=== PATIENT | female | born 1995 | race Caucasian/White ===

== ENCOUNTER 2017-08-31 16:20 | Emergency (ER) | payer BC ==
[2017-08-31] MEDS ORDERED: PROPOFOL INJ 200 MG/20 ML VIAL IV ONE (16:45)
--- NOTE | 2017-08-31 16:49 | ER Document Report ---
ED General - General Chief Complaint: Jaw Pain Stated Complaint: JAW PAIN Time Seen by Provider: 08/31/17 16:45 Notes: 21-year-old female presents with her mouth stuck "lock jaw" acute onset associated with bilateral mandibular pain, onset while sleeping about an hour ago. Last oral intake was 5 hours ago. 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 She wears a guard and has a specialist. No history of adverse events from sedation. TRAVEL OUTSIDE OF THE [place] IN LAST 30 DAYS: No - Related Data Allergies/Adverse Reactions: amoxicillin trihydrate [From Augmentin] Allergy (Verified 08/16/16 02:52) Potassium Clavulanate * [From Augmentin] Allergy (Verified 08/16/16 02:52) Past Medical History - Social History Smoking Status: Never Smoker Chew tobacco use (# tins/day): No Frequency of alcohol use: None Drug Abuse: None Family History: Reviewed & Not Pertinent, Other - Kidney stones Patient has suicidal ideation: No Patient has homicidal ideation: No - Past Medical History Cardiac Medical History: Reports: Other - Mandible dislocation Renal/ Medical History: Denies: Hx Peritoneal Dialysis Past Surgical History: Reports: Hx Gynecologic Surgery, Hx Orthopedic Surgery - achilles tendon - Immunizations Immunizations up to date: Yes Hx Diphtheria, Pertussis, Tetanus Vaccination: Yes Review of Systems - Review of Systems Notes: REVIEW OF SYSTEMS GEN: Denies fever, chills, weight loss ENT: D mandible dislocation EYES: Denies blurry vision, eye pain, discharge CV: Denies chest pain, palpitations, edema RESP: Denies cough, shortness of breath, wheezing GI: Denies abdominal pain, nausea, vomiting, diarrhea MSK: Denies joint pain/swelling, edema, SKIN: Denies rash, skin lesions LYMPH: Denies swollen glands/lymph nodes NEURO: Denies headache, focal weakness or numbness, dizziness PSYCH: Denies depression, suicidal or homicidal ideation PHYSICAL EXAMINATION General: No acute distress, well-nourished Head: Atraumatic, normocephalic ENT: Mouth normal, oropharynx moist, mouth is open with bilateral temporomandibular tenderness and masseter spasm. Eyes: Conjunctiva normal, pupils equal, lids normal Neck: No JVD, supple, no guarding CVS: Normal rate, regular rhythm, no murmurs Resp: No resp distress, equal and normal breath sounds bilaterally GI: Nondistended, soft, no tenderness to palpation, no rebound or guarding Ext: No deformities, no edema, normal range of motion in upper and lower ext Back: No CVA or midline TTP Skin: No rash, warm Lymphatic: No lymphadeopathy noted Neuro: Awake, alert. Face symmetric. GCS 15. Physical Exam - Vital signs Vitals: Temp Pulse Resp BP Pulse Ox 99.1 F 91 20 115/68 96 08/31/17 16:33 08/31/17 16:33 08/31/17 16:33 08/31/17 16:33 08/31/17 16:33 Course - Re-evaluation Re-evalutation: 08/31/17 16:54 21-year-old female presents with mandibular dislocation. I attempted closed reduction using the pre-maxillary pressure and rotational technique and the patient was intolerant secondary to pain. She has no contraindications to procedural sedations we will proceed with propofol sedation and closed reduction. 08/31/17 17:54 Minimal successfully reduced. Adithya wrap applied. Instructions given to patient and her mother. At about 555 the patient was awake alert with normal vital signs appropriate for discharge home. Will follow up with her dentist for referral to maxillofacial surgery. I have discussed with the patient there likely diagnosis, aftercare plan, follow -up plans and my usual and customary return precautions. They verbalized understanding of this. - Vital Signs Vital signs: Temp Pulse Resp BP Pulse Ox 99.1 F 91 10 L 115/68 99 08/31/17 16:33 08/31/17 16:33 08/31/17 16:54 08/31/17 16:33 08/31/17 16:54 Procedures - Conscious Sedation Conscious sedation Time started: 17:20 Time completed: 17:45 Consent obtained: Yes Indication: Reduction of mandible dislocation Normal healthy pt.: P1. - ASA Classification Airway Evaluation: Normal anatomy Mallampati Classification: Class 1 Used during procedure: Suction available, IV access obtained, Pulse ox on pt., Other - End-tidal CO2 placed Reversal agents: None I personally performed/intraservice time: Sedation, Procedure, 31-45 min Complications: No - Joint Reduction/Fracture Care Right Head Time completed: 17:40 Consent obtained: Yes Conscious sedation: Yes Pre-procedure NV exam: No Fracture: Closed, Other Manipulation comment: Mandible dislocation reduced intraorally with axial traction and rotational Post-procedure NV exam: No Post-reduction x-ray: Joint reduced Reduction attempts: 1 Notes: 08/31/17 17:53 Adithya wrap applied after successful reduction Discharge - Discharge Clinical Impression: Dislocated mandible Qualifiers: Encounter type: initial encounter Qualified Code(s): S03.00XA - Dislocation of jaw, unspecified side, initial encounter Condition: Good Disposition: HOME, SELF-CARE Instructions: Fractured Mandible ([facility]), Post Sedation Instructions ([facility]) Additional Instructions: Please avoid yawning, do not eat hard candy or large objects requiring it open her mouth widely, take ibuprofen for pain, and follow-up with your maxillofacial specialist in the next 5 days.
[2017-08-31] MEDS ORDERED: NORMAL SALINE 1000 ML 1,000 ML IV ONE (16:53)
[2017-08-31 17:57] VITALS: BP 102/43
== END 2017-08-31 18:00 | disposition home or self-care (01) ==
LOC: ER 16:20
DX: M26.69 Other specified disorders of temporomandibular joint (principal); Z88.0 Allergy status to penicillin
CPT/HCPCS: 99283; 96360; 99153; 99152; 21480; J7030; J2704

== ENCOUNTER 2017-11-23 12:11 | Emergency (ER) | payer BC ==
[2017-11-23] MEDS ORDERED: PROPOFOL INJ 200 MG/20 ML VIAL IV ONE ×2 (12:40→13:14)
[2017-11-23] MEDS ORDERED: MORPHINE SULFATE 10 MG/ML INJ IV ONE (12:43)
[2017-11-23] MEDS ORDERED: ONDANSETRON HCL INJ/PF 4 MG/2 ML SDV IV ONE (12:43)
[2017-11-23] MEDS ORDERED: FENTANYL CITRATE INJ/PF 100 MCG/2 ML AMPUL IV ONE (12:59)
[2017-11-23] MEDS ORDERED: DIAZEPAM INJ 10 MG/2 ML DISP.SYRIN IV ONE (13:13)
--- NOTE | 2017-11-23 14:12 | ER Document Report ---
ED Oral Problem - General Chief Complaint: Jaw Pain Stated Complaint: JAW LOCKED Time Seen by Provider: 11/23/17 12:40 Mode of Arrival: Ambulatory Information source: Patient, Relative Notes: 21 years old female presents today with dislocation of the jaws. This is the fourth or fifth time she has done it. Over the last 3 years. She was jogging and then jaw dislocated in severe pain. TRAVEL OUTSIDE OF THE [place] IN LAST 30 DAYS: No - HPI Patient complains to provider of: Jaw pain. No: Foreign body, Sore throat, Swelling of face, Swelling of jaw, Toothache, Other Onset: Just prior to arrival Onset: Sudden Quality of pain: denies: No pain, Achy, Burning, Cramping, Dull, Fullness, Pressure, Sharp, Stabbing, Throbbing, Other Context: denies: Fractured tooth, Recent antibiotic use, Recent dental extractions, Recent yeast infection, Other Associated symptoms: denies: None, Chills, Cough, Decreased appetite, Dental decay, Difficulty speaking, Drainage, Drooling, Earache, Facial pain, Fever, Headache, Jaw pain, Short of breath, Sweaty, Toothache, Tongue swelling, Unable to swallow, White patches in mouth, Other - Related Data Allergies/Adverse Reactions: amoxicillin trihydrate [From Augmentin] Allergy (Verified 11/23/17 12:13) Potassium Clavulanate * [From Augmentin] Allergy (Verified 11/23/17 12:13) Past Medical History - General Information source: Patient - Social History Smoking Status: Never Smoker Cigarette use (# per day): No Chew tobacco use (# tins/day): No Smoking Education Provided: No Frequency of alcohol use: None Lives with: Family Family History: Reviewed & Not Pertinent, Other - Kidney stones Patient has suicidal ideation: No Patient has homicidal ideation: No - Past Medical History Cardiac Medical History: Denies: None, Hx Atrial Fibrillation, Hx Congestive Heart Failure, Hx Coronary Artery Disease, Hx DVT, Hx Heart Attack, Hx Hypercholesterolemia, Hx Hypertension, Hx Peripheral Vascular Disease, Hx Pulmonary Embolism, Hx Heart Murmur, Other Renal/ Medical History: Denies: Hx Peritoneal Dialysis Past Surgical History: Reports: Hx Gynecologic Surgery, Hx Orthopedic Surgery - achilles tendon - Immunizations Immunizations up to date: Yes Hx Diphtheria, Pertussis, Tetanus Vaccination: Yes Review of Systems - Review of Systems Constitutional: denies: No symptoms reported, See HPI, Chills, Diaphoresis, Fever, Malaise, Weakness, Other, Weight gain, Weight loss, Recent illness EENT: See HPI Cardiovascular: denies: No symptoms reported, See HPI, Chest pain, Palpitations , Heart racing, Orthopnea, Dyspnea, Syncope, Dizziness, Lightheaded, Edema, Other, Paroxysmal Nocturnal Dysp Respiratory: denies: No symptoms reported, See HPI, Cough, Hurts to breathe, Hemoptysis, Short of breath, Sputum, Stridor, Wheezing, Other Gastrointestinal: denies: No symptoms reported, See HPI, Abdomen distended, Abdominal pain, Diarrhea, Nausea, Vomiting, Constipation, Blood streaked bowels , Poor appetite, Poor fluid intake, Blood in vomit, Black stools, Rectal bleeding, Last bowel movement, Fecal incontinence, Other Genitourinary: denies: No symptoms reported, See HPI, Burning, Dysuria, Discharge, Frequency, Flank pain, Hematuria, Incontinence, Pain, Urgency, Retention, Other Female Genitourinary: denies: No symptoms reported, See HPI, Last menstrual period, , Post menopausal, Heavy/abnormal periods, Irregular period, Vaginal bleeding, Vaginal discharge, Vaginal odor, Painful intercourse, Other Skin: denies: No symptoms reported, See HPI, Change in color, Change in hair/ nails, Dryness, Lesions, Lumps, Rash, Other Hematologic/Lymphatic: denies: No symptoms reported, See HPI, Anemia, Blood clots, Easy bleeding, Easy bruising, Enlarged lymph nodes, Swollen glands, Other Neurological/Psychological: denies: No symptoms reported, See HPI, Confusion, Dementia, Depression, Hallucinations, Anxiety, Homicidal ideation, Sensory change, Weakness, Gait changes, Loss of power, Paralysis, Seizure, Lost consciousness, Headaches, Speech impairment, Numbness, Suicidal ideation, Tingling, Tremor, Other Physical Exam - Vital signs Vitals: Temp Pulse Resp BP Pulse Ox 97.8 F 73 18 109/74 98 11/23/17 12:16 11/23/17 12:16 11/23/17 12:16 11/23/17 12:16 11/23/17 12:16 - General Notes: PHYSICAL EXAMINATION: GENERAL: Well-appearing, unable to close drooling,crying with pain jaw is opened. HEAD: Atraumatic, normocephalic. EYES: Pupils equal round and reactive to light, extraocular movements intact, conjunctiva are normal. ENT: Nares patent, oropharynx clear without exudates. Moist mucous membranes. NECK: Normal range of motion, supple without lymphadenopathy LUNGS: Breath sounds clear to auscultation bilaterally and equal. No wheezes rales or rhonchi. HEART: Regular rate and rhythm without murmurs ABDOMEN: Soft, nontender, nondistended abdomen. No guarding, no rebound. No masses appreciated. Female : deferred Musculoskeletal: Normal range of motion, no pitting or edema. No cyanosis. NEUROLOGICAL: Cranial nerves grossly intact. Normal speech, normal gait. Normal sensory, motor exams PSYCH: Normal mood, normal affect. SKIN: Warm, Dry, normal turgor, no rashes or lesions noted. Course - Re-evaluation Re-evalutation: 11/23/17 14:11 Under conscious sedation chart was put back and currently she is not in pain or discomfort. - Vital Signs Vital signs: Temp Pulse Resp BP Pulse Ox 97.8 F 56 L 19 106/64 100 11/23/17 12:16 11/23/17 13:15 11/23/17 13:40 11/23/17 13:40 11/23/17 13:40 Procedures - Joint Reduction/Fracture Care jaw, bilateral Time completed: 15:00 Consent obtained: Yes Conscious sedation: Yes - With propofol Pre-procedure NV exam: Yes Manipulation comment: The jaw was pressed down push backward and brought forward and closed it wi Post-procedure NV exam: Yes Reduction attempts: 1 Notes: 11/23/17 14:19 The jaw was put back without any complications Discharge - Discharge Clinical Impression: Dislocation of jaw, bilateral, initial encounter Qualifiers: Encounter type: initial encounter Qualified Code(s): S03.03XA - Dislocation of jaw, bilateral, initial encounter Condition: Fair Disposition: HOME, SELF-CARE Instructions: Jaw Dislocation ([facility]) Prescriptions: Hydrocodone/Acetaminophen [Vicodin 5-300 mg Tablet] 1 each PO Q6HP PRN #10 tablet PRN Reason: Baclofen [Baclofen 10 mg Tablet] 10 mg PO TID PRN #30 tablet PRN Reason: Diclofenac Sodium 50 mg PO TID #30 tablet. Referrals: LOCALMD,NO [Primary Care Provider] - Follow up as needed
[2017-11-23 14:37] VITALS: BP 104/50
== END 2017-11-23 14:37 | disposition home or self-care (01) ==
LOC: ER 12:11
PROC: 0RSDXZZ Reposition Left Temporomandibular Joint, External Approach (ICD-10-PCS; principal; 2017-11-23)
PROC: 0RSCXZZ Reposition Right Temporomandibular Joint, External Approach (ICD-10-PCS; 2017-11-23)
DX: S03.03XA Dislocation of jaw, bilateral, initial encounter (principal); R68.84 Jaw pain; X58.XXXA Exposure to other specified factors, initial encounter
CPT/HCPCS: 99283; 99153; 99152; 96374; 96375; 21480; J3360; J3010; J2405; J2704

== ENCOUNTER 2018-03-21 00:24 | Emergency (ER) | payer BC, OTHER ==
[2018-03-21] MEDS ORDERED: EPINEPHRINE INJ/PF 1 MG/1 ML AMPULE ONE (00:27)
[2018-03-21] MEDS ORDERED: RACEPINEPHRINE HCL 2.25% NEB 0.5 ML AMPUL NEB ONE (00:34)
[2018-03-21] MEDS ORDERED: MIDAZOLAM 2 MG/2 ML INJ ONE (00:35)
--- NOTE | 2018-03-21 00:44 | ER Document Report ---
ED General - General Stated Complaint: BREATHING DIFFICULTY Time Seen by Provider: 03/21/18 00:41 Cannot obtain history due to: Unstable vital signs Notes: Patient is a 22-year-old female who presents with acute anaphylaxis. Patient was apparently cleaning at work and began having facial swelling and difficulty breathing. History is limited secondary to the acuity of this patient's presentation as she has in severe respiratory distress at time of evaluation. EMS has already provided 3 doses of epinephrine prior to arrival. TRAVEL OUTSIDE OF THE [place] IN LAST 30 DAYS: No - Related Data Allergies/Adverse Reactions: amoxicillin trihydrate [From Augmentin] Allergy (Verified 11/23/17 12:13) Potassium Clavulanate * [From Augmentin] Allergy (Verified 11/23/17 12:13) Past Medical History - General Information source: Patient, Emergency Med Personnel - Social History Smoking Status: Never Smoker Frequency of alcohol use: None Drug Abuse: None Lives with: Parents Family History: Reviewed & Not Pertinent, Other - Kidney stones - Past Medical History Cardiac Medical History: Denies: Hx Atrial Fibrillation, Hx Congestive Heart Failure, Hx Coronary Artery Disease, Hx DVT, Hx Heart Attack, Hx Hypercholesterolemia, Hx Hypertension, Hx Peripheral Vascular Disease, Hx Pulmonary Embolism, Hx Heart Murmur Renal/ Medical History: Denies: Hx Peritoneal Dialysis Past Surgical History: Reports: Hx Gynecologic Surgery, Hx Orthopedic Surgery - achilles tendon - Immunizations Immunizations up to date: Yes Hx Diphtheria, Pertussis, Tetanus Vaccination: Yes Review of Systems - Review of Systems Notes: Constitutional: Negative for fever. HENT: Positive for throat tightness and stridor Eyes: Negative for visual changes. Cardiovascular: Negative for chest pain. Respiratory: Positive for shortness of breath. Gastrointestinal: Negative for abdominal pain, positive for nausea Genitourinary: Negative for dysuria. Musculoskeletal: Negative for back pain. Skin: Negative for rash. Neurological: Negative for headaches, weakness or numbness. 10 point ROS negative except as marked above and in HPI. Physical Exam - Vital signs Vitals: Resp Pulse Ox 23 H 100 03/21/18 00:29 03/21/18 00:29 Interpretation: Tachycardic, Tachypneic Notes: PHYSICAL EXAMINATION: GENERAL: Appears extremely uncomfortable, in respiratory distress HEAD: Atraumatic, normocephalic. EYES: Pupils equal round and reactive to light, extraocular movements intact, sclera anicteric, conjunctiva are normal. ENT: Diffuse facial swelling and swelling of the upper and lower lips. Nares patent, oropharynx widely patent without any areas of edema or swelling. Moist mucous membranes. Positive stridor NECK: Normal range of motion, supple without lymphadenopathy, stridor on inspiration LUNGS: Tachypnea, respiratory rate of 34 at time of initial assessment. HEART: Regular tachycardia without murmurs ABDOMEN: Soft, nontende EXTREMITIES: Normal range of motion, no pitting or edema. No cyanosis. NEUROLOGICAL: No focal neurological deficits. Moves all extremities spontaneously and on command. PSYCH: Moderately anxious SKIN: Warm, Dry, normal turgor, no rashes or lesions noted. Course - Re-evaluation Re-evalutation: 03/21/18 00:43 Please note the documentation has been delayed as I have been continuous that the patient's bedside for the previous 20 minutes patient presents with acute anaphylaxis, severe facial swelling, stridor and has ready received 2 intramuscular epinephrine's prior to my assessment. I immediately prepared an epinephrine infusion at the bedside and began to hang it. State of the patient' s bedside and monitor for improvement. After approximately 5 minutes of continuous infusion of an epinephrine drip the patient's facial swelling started improving her stridor did resolve. She has already received famotidine , Solu-Medrol, Benadryl prior to arrival. The epinephrine infusion was discontinued after patient had improvement of her stridor. The patient is also been given a small amount of midazolam as she is quite anxious as well. A racemic epinephrine nebulizer has also been administered. The patient will continue on a continuous residential monitor. Will continue to reassess at regular intervals. 03/21/18 01:21 Patient stridor continues to be resolved, no hypotension, facial edema remains resolved. She does remain somewhat anxious and I will give her an additional 1 mg of midazolam will continue to monitor very closely. 03/21/18 02:19 Patient continues to be very well, no symptoms. Her heart rate is normal, respiratory rate normal, 97% on room air. Repeat lung examination does not reveal any stridor or wheezing. All facial swelling and edema has resolved. Patient will be discharged with a prescription for an EpiPen, I have also recommended outpatient formal allergy testing. At this time will discharge with return precautions and follow-up recommendations. Verbal discharge instructions given a the bedside and opportunity for questions given. Medication warnings reviewed. Patient is in agreement with this plan and has verbalized understanding of return precautions and the need for primary care follow-up in the next 24-72 hours. - Vital Signs Vital signs: Temp Pulse Resp BP Pulse Ox 26 H 126/65 H 98 03/21/18 02:01 03/21/18 02:01 03/21/18 02:01 Critical Care Note - Critical Care Note Total time excluding time spent on procedures (mins): 38 Comments: Critical care time spent obtaining history from patient or surrogate, development of treatment plan with patient or surrogate, evaluation of patient' s response to treatment, examination of patient, ordering and performing treatments and interventions, ordering and review of laboratory studies, re- evaluation of patient's condition, ordering and review of radiographic studies and review of old charts Discharge - Discharge Clinical Impression: Respiratory distress, Stridor Acute anaphylaxis Qualifiers: Encounter type: initial encounter Qualified Code(s): T78.2XXA - Anaphylactic shock, unspecified, initial encounter Condition: Good Disposition: HOME, SELF-CARE Additional Instructions: IF YOU DEVELOP DIFFICULTY BREATHING, RETURN OF HIVES, VOMITING, LIGHTHEADEDNESS , GIVE YOURSELF THE EPINEPHRINE SHOT IMMEDIATELY AND CALL 911. NEVER HESITATE TO GIVE YOURSELF THE EPINEPHRINE THIS CAN SAVE YOUR LIFE IF YOU ARE HAVE A SERIOUS ALLERGIC REACTION. Please also follow-up with your primary care doctor for consideration of allergy testing. [facility] [place] have allergy testing available. Prescriptions: Epinephrine [Epipen 2-Dexter] 0.3 mg IM ONCE PRN #1 packet PRN Reason: Referrals: LOCALMD,NO [NO LOCAL MD] - Follow up as needed
[2018-03-21] MEDS ORDERED: MIDAZOLAM 2 MG/2 ML INJ IV ONE (01:21)
[2018-03-21 03:19] VITALS: BP 115/63
== END 2018-03-21 03:10 | disposition home or self-care (01) ==
LOC: ER 00:24
DX: R06.00 Dyspnea, unspecified (principal); Z88.0 Allergy status to penicillin
CPT/HCPCS: 96376; 94640; 99291; 96372; 96374; J2250; J0171; J3490

== ENCOUNTER 2018-03-21 17:24 | Emergency (ER) | payer BC, OTHER ==
--- NOTE | 2018-03-21 18:30 | ER Document Report ---
ED Medical Screen (RME) - General Chief Complaint: Allergic Reaction Stated Complaint: POSSIBLE ALLERGIC REACTION Time Seen by Provider: 03/21/18 18:18 Notes: RAPID MEDICAL EVALUATION DISCLOSURE I have seen this patient as part of a Rapid Medical Evaluation and, if applicable, placed any initially appropriate orders. The patient will be seen and fully evaluated, including a full history and physical exam, by a provider ( in Main ED or Fast Track) when a room becomes available. 22-year-old female back again with complaints of difficulty breathing, and chest tightness, but started back up again approximately 2-1/2 hours ago and progressively worsening. She was seen earlier today for an allergic reaction to chemicals at work and received Solu-Medrol Pepcid and Benadryl prior to arrival here. Once she arrived here, she was placed on an epinephrine infusion with resolution of her stridor and was discharged home. Mother brought her back in because she has a return of the symptoms. She has not administered a dose of EpiPen to herself tonight. EXAM No uvular or oropharyngeal edema No wheezing or decreased aeration When pt asked to breath through her nose, no stridor present When pt breathes through mouth, upper airway sounds heard O2 sats 99% on RA, HR 86 TRAVEL OUTSIDE OF THE [place] IN LAST 30 DAYS: No - Related Data Allergies/Adverse Reactions: amoxicillin trihydrate [From Augmentin] Allergy (Verified 11/23/17 12:13) Potassium Clavulanate * [From Augmentin] Allergy (Verified 11/23/17 12:13) Past Medical History - Social History Family history: Reviewed & Not Pertinent - Past Medical History Cardiac Medical History: Denies: Hx Atrial Fibrillation, Hx Congestive Heart Failure, Hx Coronary Artery Disease, Hx DVT, Hx Heart Attack, Hx Hypercholesterolemia, Hx Hypertension, Hx Peripheral Vascular Disease, Hx Pulmonary Embolism, Hx Heart Murmur Renal/ Medical History: Denies: Hx Peritoneal Dialysis Past Surgical History: Reports: Hx Gynecologic Surgery, Hx Orthopedic Surgery - achilles tendon - Immunizations Immunizations up to date: Yes Hx Diphtheria, Pertussis, Tetanus Vaccination: Yes Physical Exam - Vital signs Vitals: Temp Pulse Resp BP Pulse Ox 98.8 F 90 24 H 110/55 L 100 03/21/18 17:28 03/21/18 17:28 03/21/18 17:28 03/21/18 17:28 03/21/18 17:28 Course - Vital Signs Vital signs: Temp Pulse Resp BP Pulse Ox 98.8 F 90 24 H 110/55 L 100 03/21/18 17:28 03/21/18 17:28 03/21/18 17:28 03/21/18 17:28 03/21/18 17:28
[2018-03-21] MEDS ORDERED: FAMOTIDINE INJ/PF 20 MG/2 ML SDV IV ONE (19:19)
[2018-03-21] MEDS ORDERED: DIPHENHYDRAMINE HCL 50 MG/ML VIAL IV ONE (19:19)
--- NOTE | 2018-03-21 19:22 | ER Document Report ---
ED General - General Chief Complaint: Allergic Reaction Stated Complaint: POSSIBLE ALLERGIC REACTION Time Seen by Provider: 03/21/18 18:18 Notes: Patient is a 22-year-old female who comes emergency department for chief complaint of possible returned allergic reaction. Patient had anaphylaxis last night where she was seen with difficulty breathing, wheezing, stridor after being exposed to chemicals at work, patient started complaining of itchiness in her throat, a feeling of shortness of breath, and she was worried that she was starting to have returned anaphylaxis. No swelling of the tongue, difficulty swallowing, swelling of the face, or rash. Patient was discharged with epinephrine pens, she did not take this before coming to the emergency department. Patient did not have history of anaphylaxis prior. Past medical history includes tonsillectomy, jaw dislocations, and anxiety (on citalopram). TRAVEL OUTSIDE OF THE [place] IN LAST 30 DAYS: No - Related Data Allergies/Adverse Reactions: amoxicillin trihydrate [From Augmentin] Allergy (Verified 11/23/17 12:13) Potassium Clavulanate * [From Augmentin] Allergy (Verified 11/23/17 12:13) Past Medical History - General Information source: Patient - Social History Smoking Status: Current Some Day Smoker Chew tobacco use (# tins/day): No Frequency of alcohol use: None Drug Abuse: None Lives with: Family Family History: Reviewed & Not Pertinent, Other - Kidney stones Patient has suicidal ideation: No Patient has homicidal ideation: No - Past Medical History Cardiac Medical History: Denies: Hx Atrial Fibrillation, Hx Congestive Heart Failure, Hx Coronary Artery Disease, Hx DVT, Hx Heart Attack, Hx Hypercholesterolemia, Hx Hypertension, Hx Peripheral Vascular Disease, Hx Pulmonary Embolism, Hx Heart Murmur Renal/ Medical History: Denies: Hx Peritoneal Dialysis Past Surgical History: Reports: Hx Gynecologic Surgery, Hx Orthopedic Surgery - achilles tendon - Immunizations Immunizations up to date: Yes Hx Diphtheria, Pertussis, Tetanus Vaccination: Yes Review of Systems - Review of Systems Constitutional: See HPI EENT: See HPI Cardiovascular: No symptoms reported Respiratory: See HPI Gastrointestinal: No symptoms reported Genitourinary: No symptoms reported Female Genitourinary: No symptoms reported Musculoskeletal: No symptoms reported Skin: No symptoms reported Hematologic/Lymphatic: No symptoms reported Neurological/Psychological: No symptoms reported Physical Exam - Vital signs Vitals: Temp Pulse Resp BP Pulse Ox 98.8 F 90 24 H 110/55 L 100 03/21/18 17:28 03/21/18 17:28 03/21/18 17:28 03/21/18 17:28 03/21/18 17:28 - Notes Notes: GENERAL: Alert, interacts well. No acute distress. HEAD: Normocephalic, atraumatic. EYES: Pupils equal, round, and reactive to light. Extraocular movements intact. ENT: Oral mucosa moist, tongue midline. [Nares patent, no nasal septal hematoma , TM's intact.] Oropharyngeal exam is unremarkable with no swelling, normal uvula. NECK: Full range of motion. Supple. Trachea midline. LUNGS: Clear to auscultation bilaterally, no wheezes, rales, or rhonchi. Slight tachypnea. HEART: Regular rate and rhythm. No murmur ABDOMEN: Soft, non-tender. Non-distended. Bowel sounds present in all 4 quadrants. EXTREMITIES: Moves all 4 extremities spontaneously. No edema, normal radial and dorsalis pedis pulses bilaterally. No cyanosis. BACK: no cervical, thoracic, lumbar midline tenderness. No saddle anesthesia, normal distal neurovascular exam. NEUROLOGICAL: Alert and oriented x3. Normal speech. [cranial nerves II through XII grossly intact]. PSYCH: Patient slightly anxious, asks a lot of questions SKIN: Warm, dry, normal turgor. No rashes or lesions noted. Course - Re-evaluation Re-evalutation: Patient given antihistamines, on reevaluation she has stopped hyperventilating, she is calm and relaxed, I did not see any evidence of anaphylaxis on her evaluation. Unsure of her previous symptoms. Patient admits that she thinks she was just anxious although this is not certain, she definitely had a severe anaphylaxis yesterday. Patient states she wants to be on something to prevent this. Decision was made to place patient on antihistamines. She states she feels like she needs something for panic attacks while she is taking this over the next couple of days, she was provided with just a few Ativan for this. Discussed follow-up, use of epinephrine, monitoring for anaphylaxis symptoms, return precautions were discussed in detail. Patient states understanding and agreement. Stable at time of discharge. - Vital Signs Vital signs: Temp Pulse Resp BP Pulse Ox 98.3 F 87 20 109/61 97 03/21/18 20:37 03/21/18 20:37 03/21/18 20:37 03/21/18 20:37 03/21/18 20:37 Discharge - Discharge Clinical Impression: Throat irritation, Shortness of breath, Anxiety Condition: Stable Disposition: HOME, SELF-CARE Additional Instructions: Your evaluation here does not show signs of anaphylaxis. Take prescribed antihistamines for 1 week. In the event of panic attack you have Ativan available, however use caution and if you develop difficulty breathing, wheezing, swelling of the throat, difficulty swallowing, swelling of the face, he break out into a rash, or have any other concerning symptoms take your epinephrine and return to the emergency department. Prescriptions: Cetirizine HCl [Zyrtec 10 mg Tablet] 1 tab PO DAILY #30 tablet Famotidine [Pepcid 20 mg Tablet] 20 mg PO DAILY #12 tablet Lorazepam [Ativan 1 mg Tablet] 1 mg PO Q4 PRN #8 tab PRN Reason: Referrals: ANDERS NICHOLE MD [Primary Care Provider] - Follow up as needed
[2018-03-21] MEDS ORDERED: LORAZEPAM 1 MG TABLET PO ONE (20:26)
[2018-03-21 20:38] VITALS: BP 109/61
== END 2018-03-21 20:38 | disposition home or self-care (01) ==
LOC: ER 17:24
DX: J39.2 Other diseases of pharynx (principal); R06.02 Shortness of breath; T78.40XA Allergy, unspecified, initial encounter; F41.9 Anxiety disorder, unspecified; R06.00 Dyspnea, unspecified; F17.200 Nicotine dependence, unspecified, uncomplicated; Z88.0 Allergy status to penicillin
CPT/HCPCS: 99283; 96374; 96375; J1200; S0028

== ENCOUNTER 2018-07-07 22:17 | Emergency (ER) | payer BC ==
--- NOTE | 2018-07-08 00:07 | ER Document Report ---
ED General - General Chief Complaint: Abdominal Pain Stated Complaint: ABDOMINAL PAIN/LEFT SIDE PAIN Time Seen by Provider: 07/07/18 23:57 Mode of Arrival: Ambulatory Information source: Patient TRAVEL OUTSIDE OF THE [place] IN LAST 30 DAYS: No - HPI Patient complains to provider of: Abdominal pain Onset: Other - 22-year-old female presents for evaluation of abdominal pain which is been persistent over the last 3 weeks for which she has been evaluated twice, she seen her primary physician at which time she underwent urine testing which showed her to have a urinary tract infection for which she was treated with an antibiotic, she subsequently was tested again and her urine was noted to be infection free but she is continued to have pain intermittently worse along the left side but also in the lower aspect of her abdomen she is referred to a job coach/job developer but is continued to have symptoms. She and her mother presented tonight because they are concerned that her pain might not be tolerable until Tuesday when she is to be seen again. She denies fevers or chills , denies any emesis, endorses some nausea. - Related Data Allergies/Adverse Reactions: amoxicillin trihydrate [From Augmentin] Allergy (Verified 07/07/18 22:18) Potassium Clavulanate * [From Augmentin] Allergy (Verified 07/07/18 22:18) Past Medical History - General Information source: Patient, Parent - Social History Smoking Status: Never Smoker Family History: Reviewed & Not Pertinent, Other - Kidney stones - Past Medical History Cardiac Medical History: Denies: Hx Atrial Fibrillation, Hx Congestive Heart Failure, Hx Coronary Artery Disease, Hx DVT, Hx Heart Attack, Hx Hypercholesterolemia, Hx Hypertension, Hx Peripheral Vascular Disease, Hx Pulmonary Embolism, Hx Heart Murmur Renal/ Medical History: Denies: Hx Peritoneal Dialysis Past Surgical History: Reports: Hx Gynecologic Surgery, Hx Orthopedic Surgery - achilles tendon - Immunizations Immunizations up to date: Yes Hx Diphtheria, Pertussis, Tetanus Vaccination: Yes Review of Systems - Review of Systems -: Yes All other systems reviewed and negative Physical Exam - Vital signs Vitals: Temp Pulse Resp BP Pulse Ox 99.0 F 82 22 H 107/71 99 07/07/18 22:27 07/07/18 22:27 07/07/18 22:27 07/07/18 22:27 07/07/18 22:27 - General General appearance: Appears well - HEENT Head: Normocephalic Eyes: Normal Conjunctiva: Normal Cornea: Normal Extraocular movements intact: Yes Eyelashes: Normal Pupils: PERRL - Respiratory Respiratory status: No respiratory distress Chest status: Nontender Breath sounds: Normal Chest palpation: Normal - Cardiovascular Rhythm: Regular Heart sounds: Normal auscultation Murmur: No - Abdominal Inspection: Normal Distension: No distension Tenderness: Nontender - Back Back: Normal - Extremities General upper extremity: Normal inspection, Nontender, Normal ROM, Normal strength General lower extremity: Normal inspection, Nontender, Normal ROM, Normal strength - Neurological Neuro grossly intact: Yes Cognition: Normal Orientation: AAOx4 Sanger Coma Scale Eye Opening: Spontaneous Connie Coma Scale Verbal: Oriented Sanger Coma Scale Motor: Obeys Commands Sanger Coma Scale Total: 15 Speech: Normal Cranial nerves: Normal Cerebellar coordination: Normal Motor strength normal: LUE, RUE, LLE, RLE Course - Re-evaluation Re-evalutation: 07/08/18 07:25 30-year-old female presents for her third visit related to abdominal pain. She has had an evaluation including this and testing treatment for infection. On examination her abdominal examination is nonfocal, she does not have any obvious masses no rebound no guarding but does have diffuse tenderness. She and her mother are very concerned that she may have a kidney stone or possible infection in the stomach. Given her constellation of symptoms to have some concern for some underlying more serious abdominal pathology including but not limited to cholecystitis appendicitis nephrolithiasis. We will obtain CT imaging as well as labs. Urinalysis CBC CMP are all unremarkable, CT of the abdomen and pelvis does not demonstrate any obvious abnormality save splenomegaly. Splenomegaly may account for the patient's left-sided flank pain however does not account for other causes of pain speak to the patient and her mother at length about the limitations of emergent workup and offered further testing as well as possible observation referral to security compliance engineer they prefer to follow-up with her primary physician for referral. We will plan for discharge with return precautions and expectant management, at this time do not believe that this patient is suffering from appendicitis or more serious intra-abdominal process. - Vital Signs Vital signs: Temp Pulse Resp BP Pulse Ox 99.1 F 63 20 101/57 L 98 07/08/18 03:16 07/08/18 03:16 07/08/18 03:16 07/08/18 03:16 07/08/18 03:16 - Laboratory Result Diagrams: 07/08/18 00:42 07/08/18 00:42 Laboratory results interpreted by me: 07/08/18 07/08/18 07/08/18 00:36 00:42 00:42 Hgb 11.4 L Hct 34.0 L MCH 26.8 L Chloride 108 H Urine Urobilinogen 2.0 H Ur Leukocyte Esterase SMALL H Discharge - Discharge Clinical Impression: Spleen enlarged Abdominal pain Qualifiers: Abdominal location: generalized Qualified Code(s): R10.84 - Generalized abdominal pain Condition: Good Disposition: HOME, SELF-CARE Instructions: Abdominal Pain ([facility]) Additional Instructions: Your seen today for your abdominal pain. He had evaluation including a physical exam as well as tests of your blood CT scan. Your CAT scan shows a slightly enlarged spleen. There is no other obvious abnormalities identified. He should call your doctor for an appointment this week. Follow-up with a security compliance engineer for further evaluation. Return for worsening fevers, chills, inability to eat or drink or pain that will not improve. Prescriptions: Dicyclomine HCl 20 mg PO BID #30 tablet Forms: Return to Work Referrals: MERRITT AYALA PA-C [COMMUNITY BASED STAFF] - Follow up as needed
[2018-07-08 00:51] LABS: APPEARANCE,URINE CLOUDY; BILIRUBIN,URINE NEGATIVE (NEGATIVE); COLOR,URINE YELLOW; GLUCOSE, URINE NEGATIVE (NEGATIVE); KETONES,URINE NEGATIVE (NEGATIVE); LEUKOCYTE ESTERASE,URINE SMALL (NEGATIVE); NITRITE,URINE NEGATIVE (NEGATIVE); PROTEIN,URINE NEGATIVE (NEGATIVE); URINE SPECIFIC GRAVITY 1.021
[2018-07-08] MEDS: KETOROLAC TROMETHAMINE INJ/PF 30 MG/1 ML SDV IV ONE (00:53)
[2018-07-08] MEDS: ONDANSETRON HCL INJ/PF 4 MG/2 ML SDV IV ONE (00:54)
[2018-07-08 01:02] LABS: ABSOLUTE EOSINOPHILS # (AUTO) 0.1 10^3/uL (0.0-0.6); ABSOLUTE LYMPHOCYTES (AUTO) 2.7 10^3/uL (0.5-4.7); ABSOLUTE MONOCYTES (AUTO) 0.3 10^3/uL (0.1-1.4); ABSOLUTE NEUT (AUTO) 4.4 10^3/uL (1.7-8.2); BASOPHILS % (AUTO) 0.3 % (0-2); EOSINOPHILS % (AUTO) 0.8 % (0-6); HEMOGLOBIN 11.4 g/dL (12.0-15.5); LYMPHOCYTES % (AUTO) 35.5 % (13-45); MEAN CORPUSCULAR HEMOGLOBIN 26.8 pg (27.0-33.4); MEAN CORPUSCULAR HGB CONC 33.4 g/dL (32.0-36.0); MEAN CORPUSCULAR VOLUME 80 fl (80-97); MONOCYTES % (AUTO) 4.4 % (3-13); PLATELET COUNT 265 10^3/uL (150-450); RED BLOOD COUNT 4.24 10^6/uL (3.72-5.28); RED CELL DISTRIBUTION WIDTH 13.7 % (11.5-14.0); TOTAL CELLS COUNTED % (AUTO) 100 %; WHITE BLOOD COUNT 7.5 10^3/uL (4.0-10.5)
[2018-07-08 01:22] LABS: ALANINE AMINOTRANSFERASE 23 U/L (9-52); ALBUMIN 4.1 g/dL (3.5-5.0); ALKALINE PHOSPHATASE 59 U/L (38-126); ANION GAP 6 (5-19); ASPARTATE AMINO TRANSFERASE 15 U/L (14-36); BILIRUBIN,DIRECT 0.2 mg/dL (0.0-0.4); BILIRUBIN,TOTAL 0.4 mg/dL (0.2-1.3); BLOOD UREA NITROGEN 12 mg/dL (7-20); CALCIUM 9.5 mg/dL (8.4-10.2); CARBON DIOXIDE 26 mmol/L (22-30); CHLORIDE 108 mmol/L (98-107); GLUCOSE 94 mg/dL (75-110); LIPASE 140.3 U/L (23-300); POTASSIUM 4.5 mmol/L (3.6-5.0); TOTAL PROTEIN 6.7 g/dL (6.3-8.2)
--- NOTE | 2018-07-08 02:08 | RADIOLOGY REPORT (SQ) ---
EXAM DESCRIPTION: CT ABDOMEN PELVIS WITH IV CONTRAST COMPLETED DATE/TME: 07/08/2018 00:06 CLINICAL HISTORY: 22 years Female, concern for appendicitis Comparison: None. Technique: IV contrast. Coronal and sagittal reformat. This exam was performed according to our departmental dose-optimization program, which includes automated exposure control, adjustment of the mA and/or kV according to patient size and/or use of iterative reconstruction technique. [facility]: Dose Right [facility]: CareDose [facility]: Dose Right [facility]: Teradose 4D [facility]: Web Performance LIMITATIONS: None Findings: Splenomegaly index of 740. Normal appendix. No ascites. No pneumoperitoneum. No bowel obstruction. Adequate appearing IUD. Inferior thorax, liver, gallbladder, pancreas, adrenals, renal system, gastrointestinal tract, pelvic organs, lymphatics, vasculature, and musculoskeleton appear otherwise unremarkable. IMPRESSION: Moderate splenomegaly.
[2018-07-08 03:24] VITALS: BP 101/57
== END 2018-07-08 03:20 | disposition home or self-care (01) ==
LOC: ER 22:17
DX: R10.84 Generalized abdominal pain (principal); R16.1 Splenomegaly, not elsewhere classified; R11.0 Nausea; Z87.440 Personal history of urinary (tract) infections; Z84.1 Family history of disorders of kidney and ureter
CPT/HCPCS: 99284; 96374; 96375; 36415; 83690; 85025; 81025; 80053; 81001; 74177; J1885; J2405

== ENCOUNTER 2018-11-12 20:08 | Emergency (ER) | payer BC, OTHER ==
[2018-11-12 20:21] VITALS: BP 132/82
[2018-11-12] MEDS ORDERED: SILVER SULFADIAZINE 1% CREAM 25 GM TP ONE (20:47)
--- NOTE | 2018-11-12 21:11 | ER Document Report ---
Entered by JAIRO TAVERAS SCRIBE 11/12/[id number] Acting as scribe for:KEELY BAHENA DO ED General - General Chief Complaint: Burn Stated Complaint: WC/POSSIBLE BURNT HAND Time Seen by Provider: 11/12/18 20:42 Primary Care Provider: HEALTH,EMPLOYEE [Primary Care Provider] - Follow up as needed Mode of Arrival: Ambulatory Information source: Patient Notes: Patient is a 22 year old female with no significant medical history presents to the emergency department complaining of a burn to the left hand. Patient states she was working in [employer] kitchen when she proceeded to slate picker tongs that had been dropped in a deep fryer. She states she immediately began to have pain in the web space of her 2nd finger and thumb and placed mustard on the burn. Patient is up to date on her tetanus. TRAVEL OUTSIDE OF THE [place] IN LAST 30 DAYS: No - Related Data Allergies/Adverse Reactions: amoxicillin trihydrate [From Augmentin] Allergy (Verified 07/07/18 22:18) Potassium Clavulanate * [From Augmentin] Allergy (Verified 07/07/18 22:18) Past Medical History - General Information source: Patient - Social History Smoking Status: Never Smoker Cigarette use (# per day): No Chew tobacco use (# tins/day): No Smoking Education Provided: No Frequency of alcohol use: None Family History: Reviewed & Not Pertinent, Other - Kidney stones Patient has suicidal ideation: No Patient has homicidal ideation: No Past Surgical History: Reports: Hx Gynecologic Surgery, Hx Orthopedic Surgery - achilles tendon - Immunizations Immunizations up to date: Yes Hx Diphtheria, Pertussis, Tetanus Vaccination: Yes Review of Systems - Review of Systems Constitutional: No symptoms reported EENT: No symptoms reported Cardiovascular: No symptoms reported Respiratory: No symptoms reported Gastrointestinal: No symptoms reported Genitourinary: No symptoms reported Female Genitourinary: No symptoms reported Musculoskeletal: See HPI Skin: See HPI Hematologic/Lymphatic: No symptoms reported Neurological/Psychological: No symptoms reported -: Yes All other systems reviewed and negative Physical Exam - Vital signs Vitals: Temp Pulse Resp BP Pulse Ox 98.3 F 98 16 132/82 H 98 11/12/18 20:20 11/12/18 20:20 11/12/18 20:20 11/12/18 20:20 11/12/18 20:20 Interpretation: Normal - Notes Notes: GENERAL: Alert, interacts well. No acute distress. HEAD: Normocephalic, atraumatic. EYES: Pupils equal, round, and reactive to light. Extraocular movements intact. ENT: Oral mucosa moist, tongue midline. NECK: Full range of motion. Supple. Trachea midline. LUNGS: No respiratory distress. EXTREMITIES: Moves all 4 extremities spontaneously. Area of erythema to the web space of the 1st finger and thumb of left hand, there is no blistering or ulcers, approximately 1 cm. Sensations intact, FROM and normal muscle strength of left hand. NEUROLOGICAL: Alert and oriented x3. Normal speech. PSYCH: Normal affect, normal mood. SKIN: Warm, dry. Course - Re-evaluation Re-evalutation: 11/12/18 20:48 Superficial burn, no blistering, no indication for transfer to burn center despite the fact that it is on the hand as it is so superficial and small. Silvadene cream will be applied. Discharged home. - Vital Signs Vital signs: Temp Pulse Resp BP Pulse Ox 98.3 F 98 16 132/82 H 98 11/12/18 20:20 11/12/18 20:20 11/12/18 20:20 11/12/18 20:20 11/12/18 20:20 Discharge - Discharge Clinical Impression: Burn, hand, first degree Qualifiers: Encounter type: initial encounter Burn of hand location: palm Laterality: left Qualified Code(s): T23.152A - Burn of first degree of left palm, initial encounter Condition: Stable Disposition: HOME, SELF-CARE Additional Instructions: Galeas The seriousness of a burn is not always obvious at first. Delayed tissue damage and secondary infection may occur despite proper treatment. Proper care is very important. Most galeas are simply protected with dressings until healed. Keep the burn clean. If the dressing gets wet, remove it and blot the wound dry, then apply a fresh dressing. Dressings should be changed at least once daily. Soaks to remove crusting are usually started in about two days. Galeas in certain areas require stretching to prevent disabling tightness. Your doctor will advise you about this. For pain control, you may apply the Silvadene cream once a day. You may also use ibuprofen or acetaminophen as directed on the container [id number]. If any signs of infection occur (swelling, redness, increasing tenderness, red streaks, tender lumps in the armpit or groin above the burn, or fever), contact the doctor immediately. Forms: Return to Work Referrals: HEALTH,EMPLOYEE [Primary Care Provider] - Follow up as needed Scribe Attestation: 11/12/18 21:11 I personally performed the services described in the documentation, reviewed and edited the documentation which was dictated to the scribe in my presence, and it accurately records my words and actions. I personally performed the services described in the documentation, reviewed and edited the documentation which was dictated to the scribe in my presence, and it accurately records my words and actions.
== END 2018-11-12 21:07 | disposition home or self-care (01) ==
LOC: ER 20:08
DX: T23.152A Burn of first degree of left palm, initial encounter (principal); X19.XXXA Contact with other heat and hot substances, initial encounter
CPT/HCPCS: 99283

== ENCOUNTER 2019-02-22 10:34 | Emergency (ER) | payer BC, OTHER ==
[2019-02-22] MEDS ORDERED: KETOROLAC TROMETHAMINE INJ/PF 30 MG/1 ML SDV IV ONE (12:00)
[2019-02-22] MEDS ORDERED: DIPHENHYDRAMINE HCL 50 MG/ML VIAL IV ONE (12:00)
[2019-02-22] MEDS ORDERED: PROCHLORPERAZINE EDISYLATE INJ 10 MG/2 ML VIAL IV ONE (12:00)
--- NOTE | 2019-02-22 12:02 | ER Document Report ---
ED Medical Screen (RME) - General Chief Complaint: Headache Stated Complaint: HEADACHE Time Seen by Provider: 02/22/19 11:55 Primary Care Provider: MALKA,EMPLOYEE [Primary Care Provider] - Follow up as needed TRAVEL OUTSIDE OF THE [place] IN LAST 30 DAYS: No - HPI Notes: 02/22/19 12:00 Patient is a 23-year-old female with no significant past medical history who presents complaining of bilateral frontal headache that starts in the base of her head and radiates upward and around there is been present intermittently over the past couple weeks. Patient states that she does have some light sensitivity and occasional dizziness associated. No recent illness. She is otherwise eating and drinking without difficulty. No other concerns or complaints. This is not the worst headache of her life and did not start as a thunderclap. Denies ANGEL, fever, neck pain, URI, CP, SOB, Abd pain, dysuria, back pain, or rash. I have treated and performed a rapid initial assessment of this patient. A comprehensive ED assessment and evaluation of the patient, analysis of test results and completion of medical decision making process will be conducted by additional ED providers. PHYSICAL EXAMINATION: GENERAL: Well-appearing, well-nourished and in no acute distress. A&Ox4. Answers questions appropriately. HEAD: Atraumatic, normocephalic. Non-tender. EYES: Pupils equal round and reactive to light, extraocular movements intact, sclera anicteric, conjunctiva are normal. No nystagmus. ENT: Nares patent and without discharge. oropharynx clear without exudates. No tonsilar hypertrophy or erythema. Moist mucous membranes. NECK: Normal range of motion, supple without lymphadenopathy. No rigidity/meningismus. No midline tenderness. LUNGS: Breath sounds clear to auscultation bilaterally and equal. No wheezes rales or rhonchi. HEART: Regular rate and rhythm without murmurs, rubs, gallops. Musculoskeletal: Ext b/l: FROM to passive/active. Strength 5+/5. No deficits noted. No bony tenderness of extremities. NEUROLOGICAL: NIH 0. GCS 15. Cranial nerves grossly intact. Normal speech, normal gait. Normal sensory, motor exams. Reflexes 2+ b/l. KANDY's negative. PSYCH: Normal mood, normal affect. SKIN: Warm, Dry, normal turgor, no rashes or lesions noted. - Related Data Allergies/Adverse Reactions: amoxicillin trihydrate [From Augmentin] Allergy (Verified 02/22/19 10:46) Potassium Clavulanate * [From Augmentin] Allergy (Verified 02/22/19 10:46) Past Medical History - Social History Frequency of alcohol use: None Drug Abuse: None Family history: Reviewed & Not Pertinent - Past Medical History Cardiac Medical History: Denies: Hx Atrial Fibrillation, Hx Congestive Heart Failure, Hx Coronary Artery Disease, Hx DVT, Hx Heart Attack, Hx Hypercholesterolemia, Hx Hypertension, Hx Peripheral Vascular Disease, Hx Pulmonary Embolism, Hx Heart Murmur Pulmonary Medical History: Reports: Hx Asthma Renal/ Medical History: Denies: Hx Peritoneal Dialysis Past Surgical History: Reports: Hx Gynecologic Surgery, Hx Orthopedic Surgery - achilles tendon - Immunizations Immunizations up to date: Yes Hx Diphtheria, Pertussis, Tetanus Vaccination: Yes Physical Exam - Vital signs Vitals: Temp Pulse Resp BP Pulse Ox 98.5 F 86 18 134/81 H 96 02/22/19 11:03 02/22/19 11:03 02/22/19 11:03 02/22/19 11:03 02/22/19 11:03 Course - Vital Signs Vital signs: Temp Pulse Resp BP Pulse Ox 98.5 F 86 18 134/81 H 96 02/22/19 11:03 02/22/19 11:03 02/22/19 11:03 02/22/19 11:03 02/22/19 11:03 Doctor's Discharge - Discharge Referrals: HEALTH,EMPLOYEE [Primary Care Provider] - Follow up as needed
[2019-02-22] MEDS ORDERED: NORMAL SALINE 1000 ML 1,000 ML IV ONE (13:50)
--- NOTE | 2019-02-22 14:21 | RADIOLOGY REPORT (SQ) ---
EXAM DESCRIPTION: CT HEAD WITHOUT COMPLETED DATE/TIME: 02/22/2019 2:11 pm REASON FOR STUDY: ANGEL/ New onset COMPARISON: None. TECHNIQUE: Axial images acquired through the brain without intravenous contrast. Images reviewed wi th bone, brain and subdural windows. Additional sagittal and coronal reconstructions were generated. Images stored on PACS. All CT scanners at this facility use dose modulation, iterative reconstruction, and/or weight based d osing when appropriate to reduce radiation dose to as low as reasonably achievable (ALARA). [facility]: Dose Right [facility]: CareDose [facility]: Dose Right [facility]: Teradose 4D [facility]: Smart CrowdTwist RADIATION DOSE: CT Rad equipment meets quality standard of care and radiation dose reduction techniq ues were employed. CTDIvol: 53.2 mGy. DLP: 1044 mGy-cm. mGy. LIMITATIONS: None. FINDINGS: VENTRICLES: Normal size and contour. CEREBRUM: No masses. No hemorrhage. No midline shift. No evidence for acute infarction. Normal gra y/white matter differentiation. No areas of low density in the white matter. CEREBELLUM: No masses. No hemorrhage. No alteration of density. No evidence for acute infarction. EXTRAAXIAL SPACES: No fluid collections. No masses. ORBITS AND GLOBE: No intra- or extraconal masses. Normal contour of globe without masses. CALVARIUM: No fracture. PARANASAL SINUSES: No fluid or mucosal thickening. SOFT TISSUES: No mass or hematoma. OTHER: No other significant finding. IMPRESSION: No acute intracranial pathology. No noncontrast CT findings to explain headache. EVIDENCE OF ACUTE STROKE: NO. COMMENT: Quality ID # [id number]: Final reports with documentation of one or more dose reduction techniques (e.g., Automated exposure control, adjustment of the mA and/or kV according to patient size, use of iterative reconstruction technique) TECHNICAL DOCUMENTATION: JOB ID: [id number] [employer]- All Rights Reserved Reading location - IP/workstation name: [email or web address]
[2019-02-22] MEDS ORDERED: HALOPERIDOL LACTATE INJ 5 MG/1 ML VIAL IV ONE (15:26)
[2019-02-22 16:26] LABS: ABSOLUTE LYMPHOCYTES (AUTO) 2.1 10^3/uL (0.5-4.7); ABSOLUTE MONOCYTES (AUTO) 0.4 10^3/uL (0.1-1.4); ABSOLUTE NEUT (AUTO) 4.7 10^3/uL (1.7-8.2); BASOPHILS % (AUTO) 0.6 % (0-2); EOSINOPHILS % (AUTO) 0.5 % (0-6); HEMATOCRIT 37.7 % (36.0-47.0); LYMPHOCYTES % (AUTO) 29.1 % (13-45); MEAN CORPUSCULAR HEMOGLOBIN 27.2 pg (27.0-33.4); MEAN CORPUSCULAR HGB CONC 31.9 g/dL (32.0-36.0); MEAN CORPUSCULAR VOLUME 85 fl (80-97); MONOCYTES % (AUTO) 5.5 % (3-13); PLATELET COUNT 227 10^3/uL (150-450); RED BLOOD COUNT 4.43 10^6/uL (3.72-5.28); RED CELL DISTRIBUTION WIDTH 15.2 % (11.5-14.0); SEGMENTED NEUTROPHILS % (AUTO) 64.3 % (42-78); TOTAL CELLS COUNTED % (AUTO) 100 %; WHITE BLOOD COUNT 7.3 10^3/uL (4.0-10.5)
[2019-02-22 16:55] LABS: ALANINE AMINOTRANSFERASE 33 U/L (9-52); ALBUMIN 3.8 g/dL (3.5-5.0); ALKALINE PHOSPHATASE 55 U/L (38-126); ANION GAP 11 (5-19); ASPARTATE AMINO TRANSFERASE 24 U/L (14-36); BILIRUBIN,DIRECT 0.3 mg/dL (0.0-0.4); BILIRUBIN,TOTAL 0.4 mg/dL (0.2-1.3); BLOOD UREA NITROGEN 11 mg/dL (7-20); CALCIUM 9.1 mg/dL (8.4-10.2); CARBON DIOXIDE 23 mmol/L (22-30); CHLORIDE 108 mmol/L (98-107); GLUCOSE 83 mg/dL (75-110); POTASSIUM 4.6 mmol/L (3.6-5.0); SODIUM 141.8 mmol/L (137-145); TOTAL PROTEIN 6.3 g/dL (6.3-8.2)
--- NOTE | 2019-02-22 17:17 | ER Document Report ---
ED Headache - General Chief Complaint: Headache Stated Complaint: HEADACHE Time Seen by Provider: 02/22/19 11:55 Primary Care Provider: HEALTH,EMPLOYEE [ACTIVE STAFF] - Follow up as needed Mode of Arrival: Ambulatory Information source: Patient Notes: Patient is a 21-year-old female comes emergency room complaining of headache. She states the first time she had a headache was 2 weeks ago and she had it when she woke up in the morning. It lasted all day but finally went away. He returned again 2 days ago is been pretty constant since that point time is on the right side of her mandaeism but does spread across to the left side occasionally. She denies no nausea or vomiting. She denies that this is the worst headache of her life. She denies any fevers she has a little bit of neck discomfort. She does states she has a little bit of blurry vision when the h eadache is in its most intense. She denies any family history of migraine headaches or headache presentation 30 type. No history of CVAs or TIAs or brain aneurysms or tumors. She denies any fevers she does state that she has some photophobia that noise also seems to bother her. She denies any pain or discomfort with rotation of her head or neck. She has no increased pain or discomfort when she leans forward or bends over. TRAVEL OUTSIDE OF THE [place] IN LAST 30 DAYS: No - HPI Patient complains to provider of: Headache Onset: Other - 2 weeks ago then re-presented 2 days ago Onset was: denies: Thunderclap, While turning head Timing: Still present Quality of pain: Pressure, Sharp, Throbbing Severity: Moderate Pain Level: 3 Context: denies: Head injury, Insect bite, Meningitis exposure, Tick bite Associated symptoms: Dizzy, Double/blurred vision, Photophobia. denies: Fever, Nausea/vomiting, Stiff neck Exacerbated by: Light, Noise. denies: Movement, Position Similar symptoms previously: Yes Recently seen / treated by doctor: No - Related Data Allergies/Adverse Reactions: amoxicillin trihydrate [From Augmentin] Allergy (Verified 02/22/19 10:46) Potassium Clavulanate * [From Augmentin] Allergy (Verified 02/22/19 10:46) Past Medical History - General Information source: Patient - Social History Smoking Status: Never Smoker Cigarette use (# per day): No Chew tobacco use (# tins/day): No Smoking Education Provided: No Frequency of alcohol use: None Drug Abuse: None Lives with: Family Family History: Reviewed & Not Pertinent, Other - Kidney stones Patient has suicidal ideation: No Patient has homicidal ideation: No - Past Medical History Cardiac Medical History: Denies: Hx Atrial Fibrillation, Hx Congestive Heart Failure, Hx Coronary Artery Disease, Hx DVT, Hx Heart Attack, Hx Hypercholesterolemia, Hx Hypertension, Hx Peripheral Vascular Disease, Hx Pulmonary Embolism, Hx Heart Murmur Pulmonary Medical History: Reports: Hx Asthma Renal/ Medical History: Denies: Hx Peritoneal Dialysis Past Surgical History: Reports: Hx Gynecologic Surgery, Hx Orthopedic Surgery - achilles tendon - Immunizations Immunizations up to date: Yes Hx Diphtheria, Pertussis, Tetanus Vaccination: Yes Review of Systems - Review of Systems Constitutional: No symptoms reported EENT: See HPI. denies: Vertigo Cardiovascular: No symptoms reported Respiratory: No symptoms reported Gastrointestinal: No symptoms reported Genitourinary: No symptoms reported Female Genitourinary: No symptoms reported Musculoskeletal: No symptoms reported Skin: No symptoms reported Hematologic/Lymphatic: No symptoms reported Neurological/Psychological: Headaches -: Yes All other systems reviewed and negative Physical Exam - Vital signs Vitals: Temp Pulse Resp BP Pulse Ox 98.5 F 86 18 134/81 H 96 02/22/19 11:03 02/22/19 11:03 02/22/19 11:03 02/22/19 11:03 02/22/19 11:03 Interpretation: Hypertensive - Notes Notes: PHYSICAL EXAMINATION: GENERAL: Patient is well-nourished well-developed 23-year-old morbidly obese female is in no apparent distress on physical exam. She is actually resting comfortably in the exam room with no anxiety and sleeping comfortably. HEAD: Atraumatic, normocephalic. EYES: Pupils equal round and reactive to light, extraocular movements intact, conjunctiva are normal. ENT: Nares patent, oropharynx clear without exudates. Moist mucous membranes. NECK: Normal range of motion, supple without lymphadenopathy LUNGS: Breath sounds clear to auscultation bilaterally and equal. No wheezes rales or rhonchi. HEART: Regular rate and rhythm without murmurs ABDOMEN: Soft, nontender, nondistended abdomen. No guarding, no rebound. No masses appreciated. Female : deferred Musculoskeletal: Normal range of motion, no pitting or edema. No cyanosis. NEUROLOGICAL: Normal speech, normal gait. Normal sensory, motor exams PSYCH: Normal mood, normal affect. SKIN: Warm, Dry, normal turgor, no rashes or lesions noted. Course - Re-evaluation Re-evalutation: 02/22/19 17:20 Patient's work-up is been negative. I am just waiting on her urine levels to come back in her to make sure there is nothing missing there. Given that she has been relatively comfortable during her stay I think we will disc harge her home and possibly put her on a little Fioricet just for any prominent presenting headache after work. I have informed her she needs to follow-up with a neurologist or at least a primary to get a referral to neurologist. I have also informed her that it should the discomfort gets worse if she should have any increase in symptoms to return to ER for recheck. 02/22/19 19:12 Patient received 100% relief of her headache after receiving the Haldol. She slept most of the day and and I believe it broke the chain. She does have a primary care provider that she sees out of town here. I will have her follow-up with him. Patient is in agreement with this treatment plan. - Vital Signs Vital signs: Temp Pulse Resp BP Pulse Ox 98.5 F 86 18 134/81 H 96 02/22/19 11:03 02/22/19 11:03 02/22/19 11:03 02/22/19 11:03 02/22/19 11:03 - Laboratory Result Diagrams: 02/22/19 16:00 02/22/19 16:00 Laboratory results interpreted by me: 02/22/19 02/22/19 02/22/19 16:00 16:00 16:10 MCHC 31.9 L RDW 15.2 H Chloride 108 H Urine Blood SMALL H Ur Leukocyte Esterase LARGE H Discharge - Discharge Clinical Impression: Headache Qualifiers: Headache type: other vascular headache Qualified Code(s): G44.1 - Vascular headache, not elsewhere classified Migraine Qualifiers: Migraine type: unspecified Status migrainosus presence: without status migrainosus Intractability: not intractable Qualified Code(s): G43.909 - Migraine, unspecified, not intractable, without status migrainosus Condition: Stable Disposition: HOME, SELF-CARE Instructions: Headache ([facility]), Toradol Injection ([facility]), Migraine Headache ([facility]) Additional Instructions: Home home and rest. Medication as prescribed and as needed only. As we discussed the need to contact her primary care provider for a reexamination the first of the week and to advise or give consult for neurologist for further follow-up. Should you have any changes over the weekend and return to ER for recheck. Prescriptions: Butalb/Acetaminophen/Caffeine [Fioricet (50-325-40 mg) Tablet] 1 - 2 tab PO Q4H #20 tab Forms: Return to Work Referrals: HEALTH,EMPLOYEE [ACTIVE STAFF] - Follow up as needed
[2019-02-22 17:40] LABS: APPEARANCE,URINE SLIGHTLY-CLOUDY; BILIRUBIN,URINE NEGATIVE (NEGATIVE); COLOR,URINE YELLOW; GLUCOSE, URINE NEGATIVE (NEGATIVE); KETONES,URINE NEGATIVE (NEGATIVE); LEUKOCYTE ESTERASE,URINE LARGE (NEGATIVE); NITRITE,URINE NEGATIVE (NEGATIVE); PROTEIN,URINE NEGATIVE (NEGATIVE); URINE SPECIFIC GRAVITY 1.009; UROBILINOGEN,URINE NEGATIVE mg/dL (<2.0)
[2019-02-22 17:51] LABS: URINE AMPHETAMINES SCREEN NEGATIVE; URINE BARBITURATES SCREEN NEGATIVE; URINE BENZODIAZEPINES SCREEN NEGATIVE; URINE COCAINE SCREEN NEGATIVE; URINE MARIJUANA (THC) SCREEN NEGATIVE; URINE METHADONE SCREEN NEGATIVE; URINE PHENCYCLIDINE SCREEN NEGATIVE
[2019-02-22 19:21] VITALS: BP 126/66
== END 2019-02-22 19:23 | disposition home or self-care (01) ==
LOC: ER 10:34
DX: G44.1 Vascular headache, not elsewhere classified (principal); G43.909 Migraine, unspecified, not intractable, without status migrainosus; R42 Dizziness and giddiness; Z88.0 Allergy status to penicillin
CPT/HCPCS: 99284; 96361; 96374; 96375; 36415; 87086; 85025; 81025; 80053; 81001; 80307; 70450; J1200; J1630; J1885; J0780; J7030

== ENCOUNTER 2019-02-24 14:22 | Emergency (ER) | payer BC ==
--- NOTE | 2019-02-24 14:38 | ER Document Report ---
ED Medical Screen (RME) - General Chief Complaint: Trouble Voiding Stated Complaint: URINARY PROBLEM Time Seen by Provider: 02/24/19 14:32 Mode of Arrival: Ambulatory Information source: Patient Notes: Patient presents complaining of inability to urinate since 8 AM today. Patient states that over the past several hours she has developed flank pain and abdominal pain. Patient states her last bowel movement was today. Patient also reports she has had swelling to the face for several weeks. Patient is never had any problems with urination in the past. Patient does report a history of a sthma orthopedic and vaginal surgery after had any traumatic laceration. Patient does not recall any involvement of the urethra with her previous surgery. I have greeted and performed a rapid initial assessment of this patient. A comprehensive ED assessment and evaluation of the patient, analysis of test results and completion of the medical decision making process will be conducted by additional ED providers. TRAVEL OUTSIDE OF THE [place] IN LAST 30 DAYS: No - Related Data Allergies/Adverse Reactions: amoxicillin trihydrate [From Augmentin] Allergy (Verified 02/22/19 10:46) Potassium Clavulanate * [From Augmentin] Allergy (Verified 02/22/19 10:46) Past Medical History - Social History Frequency of alcohol use: None Drug Abuse: None Family history: Reviewed & Not Pertinent - Past Medical History Cardiac Medical History: Denies: Hx Atrial Fibrillation, Hx Congestive Heart Failure, Hx Coronary Artery Disease, Hx DVT, Hx Heart Attack, Hx Hypercholesterolemia, Hx Hypertension, Hx Peripheral Vascular Disease, Hx Pulmonary Embolism, Hx Heart Murmur Pulmonary Medical History: Reports: Hx Asthma Renal/ Medical History: Denies: Hx Peritoneal Dialysis Past Surgical History: Reports: Hx Gynecologic Surgery, Hx Orthopedic Surgery - achilles tendon - Immunizations Immunizations up to date: Yes Hx Diphtheria, Pertussis, Tetanus Vaccination: Yes Physical Exam - Vital signs Vitals: Temp Pulse Resp BP Pulse Ox 98.0 F 95 13 139/78 H 98 02/24/19 14:28 02/24/19 14:28 02/24/19 14:28 02/24/19 14:28 02/24/19 14:28 - Back Back: CVA tenderness Course - Vital Signs Vital signs: Temp Pulse Resp BP Pulse Ox 98.0 F 95 13 139/78 H 98 02/24/19 14:28 02/24/19 14:28 02/24/19 14:28 02/24/19 14:28 02/24/19 14:28
[2019-02-24 15:36] LABS: ABSOLUTE LYMPHOCYTES (AUTO) 2.7 10^3/uL (0.5-4.7); ABSOLUTE MONOCYTES (AUTO) 0.5 10^3/uL (0.1-1.4); ABSOLUTE NEUT (AUTO) 6.4 10^3/uL (1.7-8.2); BASOPHILS % (AUTO) 0.4 % (0-2); EOSINOPHILS % (AUTO) 0.5 % (0-6); HEMATOCRIT 36.6 % (36.0-47.0); HEMOGLOBIN 12.2 g/dL (12.0-15.5); LYMPHOCYTES % (AUTO) 27.6 % (13-45); MEAN CORPUSCULAR HEMOGLOBIN 27.7 pg (27.0-33.4); MEAN CORPUSCULAR HGB CONC 33.2 g/dL (32.0-36.0); MEAN CORPUSCULAR VOLUME 84 fl (80-97); MONOCYTES % (AUTO) 5.3 % (3-13); PLATELET COUNT 278 10^3/uL (150-450); RED BLOOD COUNT 4.39 10^6/uL (3.72-5.28); RED CELL DISTRIBUTION WIDTH 15.3 % (11.5-14.0); SEGMENTED NEUTROPHILS % (AUTO) 66.2 % (42-78); TOTAL CELLS COUNTED % (AUTO) 100 %; WHITE BLOOD COUNT 9.6 10^3/uL (4.0-10.5)
[2019-02-24 15:58] LABS: ALANINE AMINOTRANSFERASE 39 U/L (9-52); ALBUMIN 4.5 g/dL (3.5-5.0); ALKALINE PHOSPHATASE 59 U/L (38-126); ANION GAP 12 (5-19); ASPARTATE AMINO TRANSFERASE 25 U/L (14-36); BILIRUBIN,DIRECT 0.3 mg/dL (0.0-0.4); BILIRUBIN,TOTAL 0.6 mg/dL (0.2-1.3); BLOOD UREA NITROGEN 15 mg/dL (7-20); CALCIUM 9.9 mg/dL (8.4-10.2); CARBON DIOXIDE 25 mmol/L (22-30); CHLORIDE 103 mmol/L (98-107); GLUCOSE 84 mg/dL (75-110); POTASSIUM 4.3 mmol/L (3.6-5.0); SODIUM 139.9 mmol/L (137-145); TOTAL PROTEIN 7.3 g/dL (6.3-8.2)
[2019-02-24 16:24] LABS: APPEARANCE,URINE CLEAR; BILIRUBIN,URINE NEGATIVE (NEGATIVE); COLOR,URINE YELLOW; GLUCOSE, URINE NEGATIVE (NEGATIVE); KETONES,URINE NEGATIVE (NEGATIVE); LEUKOCYTE ESTERASE,URINE NEGATIVE (NEGATIVE); NITRITE,URINE NEGATIVE (NEGATIVE); PROTEIN,URINE NEGATIVE (NEGATIVE); URINE SPECIFIC GRAVITY 1.008; UROBILINOGEN,URINE NEGATIVE mg/dL (<2.0)
--- NOTE | 2019-02-24 20:01 | ER Document Report ---
ED General - General Chief Complaint: Trouble Voiding Stated Complaint: URINARY PROBLEM Time Seen by Provider: 02/24/19 14:32 Mode of Arrival: Ambulatory Information source: Patient Notes: This is a 23-year-old female with a history of polycystic ovarian syndrome, kidney stones, asthma and headaches. Patient states that her headaches have gotten worse over the past several weeks. She was in the emergency room 2 nights ago with a can treated with IV medicines. She also reports that her a sthma was acting up frequently this spring and was on steroids several times. She presented today with complaints of inability to urinate. She does report that she has had some mild left flank pain earlier. She is not complaining of any significant flank pain at this time. She denies any gait instability or any numbness to the lower extremities or any weakness to the lower extremities. She states she still gets the headaches and that she feels like her vision is blurry at times. She is not in any significant headache tonight. She denies any recent febrile illnesses. She denies any difficulty with her bowel movements. TRAVEL OUTSIDE OF THE [place] IN LAST 30 DAYS: No - HPI Onset: This morning Onset/Duration: Gradual Quality of pain: Achy, Dull Severity: Mild Pain Level: 1 Associated symptoms: denies: Chest pain, Fever, Shortness of breath Exacerbated by: Denies Relieved by: Denies Similar symptoms previously: No Recently seen / treated by doctor: Yes - Related Data Allergies/Adverse Reactions: amoxicillin trihydrate [From Augmentin] Allergy (Verified 02/22/19 10:46) Potassium Clavulanate * [From Augmentin] Allergy (Verified 02/22/19 10:46) Past Medical History - General Information source: Patient - Social History Smoking Status: Never Smoker Cigarette use (# per day): No Chew tobacco use (# tins/day): No Frequency of alcohol use: None Drug Abuse: None Lives with: Family Family History: Reviewed & Not Pertinent, Other - Kidney stones Patient has suicidal ideation: No Patient has homicidal ideation: No - Past Medical History Cardiac Medical History: Denies: Hx Atrial Fibrillation, Hx Congestive Heart Failure, Hx Coronary Artery Disease, Hx DVT, Hx Heart Attack, Hx Hypercholesterolemia, Hx Hypertension, Hx Peripheral Vascular Disease, Hx Pulmonary Embolism, Hx Heart Murmur Pulmonary Medical History: Reports: Hx Asthma Renal/ Medical History: Denies: Hx Peritoneal Dialysis Past Surgical History: Reports: Hx Gynecologic Surgery, Hx Orthopedic Surgery - achilles tendon - Immunizations Immunizations up to date: Yes Hx Diphtheria, Pertussis, Tetanus Vaccination: Yes Review of Systems - Review of Systems Constitutional: denies: Chills, Fever EENT: denies: Eye pain, Eye discharge, Blurred vision - She denies any blurry vision at this time., Double vision - She denies double vision. Cardiovascular: denies: Chest pain, Palpitations, Heart racing Respiratory: denies: Short of breath, Wheezing Gastrointestinal: Other - Did have some left flank pain.. denies: Abdominal pa in, Diarrhea, Nausea, Vomiting Genitourinary: Retention. denies: Burning, Dysuria, Hematuria, Urgency Female Genitourinary: No symptoms reported Musculoskeletal: No symptoms reported Skin: No symptoms reported Hematologic/Lymphatic: No symptoms reported Neurological/Psychological: Headaches - Has had headaches in the past 5 weeks, she denies any headache now.. denies: Confusion, Weakness, Gait changes, Loss of power, Speech impairment, Numbness Physical Exam - Vital signs Vitals: Temp Pulse Resp BP Pulse Ox 98.0 F 95 13 139/78 H 98 02/24/19 14:28 02/24/19 14:28 02/24/19 14:28 02/24/19 14:28 02/24/19 14:28 Notes: Physical exam: The nurse was present during my exam for the chaperoning. GENERAL: This is a 23-year-old female, alert and oriented x3, no acute distress. HEAD: Atraumatic, normocephalic. EYES: Pupils equal round and reactive to light, extraocular movements intact, sclera anicteric, conjunctiva are normal. I am able to see part of the discs bilaterally and I do not see any obvious papilledema. Patient tolerates the light fine, she has no photophobia. ENT: TMs normal, nares patent, oropharynx clear without exudates. Moist mucous membranes. NECK: Since neck is supple and she has full range of motion with any pain. LUNGS: Breath sounds clear to auscultation bilaterally and equal. No wheezes r ales or rhonchi. HEART: Regular rate and rhythm without murmurs, rubs or gallops. ABDOMEN: Soft, normoactive bowel sounds. No tenderness to palpation. No guarding, no rebound. No masses appreciated. Back: Patient has no cervical spine tenderness to palpation. She has no thoracic spine or lumbar spine tenderness to deep palpation. She has mild tenderness over the left CVA region to deep palpation. EXTREMITIES: Normal range of motion, no pitting or edema. No clubbing or cyanosis. NEUROLOGICAL: Cranial nerves II through XII grossly intact. Speech is normal. Upper motor exam is 5/5, lower motor exam is 5/5. Cerebellar ([id number]) is good. Sensory to the lower extremities, and her thighs and groin are good. She does have sphincter tone. Patient's reflexes are 2+ and symmetrical. Her neck is supple, no rigidity. She does not have any photophobia. PSYCH: Normal mood, normal affect. SKIN: Warm, Dry, normal turgor, no rashes or lesions noted. Bedside ultrasound: No hydronephrosis. No obvious stones in the bladder. Course - Re-evaluation Re-evalutation: 02/24/19 21:25 Note: Patient does report that she has had a lot of swelling to the face. She does report having been on prednisone a few times this spring. Her BUN and creatinine look good now. I do not detect any lower extremity edema. There is no evidence of significant proteinuria. As far as her urinary retention. A catheterization was placed and she put out approximately 700 cc of urine. I did a bedside ultrasound I see no hydrone phrosis or any stone in the bladder. She does have a history of kidney stones and is been seen by the urologist (Dr. Wan) in the past. In any event, I spoke to Dr. Yandy khan who recommended putting the patient on some Flomax, doing the option Denson with a bag until Tuesday when he is willing to see the patient in the office on Tuesday. I discussed this option with the patient and her daughter and they are agreeable. I will send a urine culture. The urine analysis showed no significant infection or blood. As far as the patient's recent headaches. Patient has not had any significant h eadache or requested any pain here today in the emergency room. However she was here 2 days ago with a requiring treatment. She also reports having a significant increase in headaches over the last few months. Whether this has any thing to do with her urinary retention, and its unclear. I did discuss the case with Dr. Rachel in [place] (neurologist) and he thought the symptoms were less likely to be something like pseudotumor. Patient is not had any vision blackouts or paresthesias. Her motor exam looks quite good and her sensory exam is normal. However I did recommend her following up with this neurologist (or neurologist that her primary care doctor prefers) given that her headaches have gotten worse. I did review the head CT from 2 days ago and it showed no acute process. - Vital Signs Vital signs: Temp Pulse Resp BP Pulse Ox 98.2 F 87 16 134/80 H 97 02/24/19 21:27 02/24/19 21:27 02/24/19 21:27 02/24/19 21:27 02/24/19 21:27 - Laboratory Result Diagrams: 02/24/19 15:22 02/24/19 15:22 Laboratory results interpreted by me: 02/24/19 15:22 RDW 15.3 H Discharge - Discharge Clinical Impression: Urinary retention Condition: Stable Disposition: HOME, SELF-CARE Additional Instructions: It is recommended that you follow-up with a urologist: When you call the campus receptionist, tell them that the ER doctor spoke to Dr. Kebede and that you were in the emergency room for acute urinary retention. Tell them that the ER doctor and Dr. Kebede wanted you seen on Tuesday. [facility] [place] Office [address] [place] [address]. [place], [place] [phone] Additionally, as we discussed: I want you to follow-up with a neurologist. I did speak to Dr. Diego Rachel at [facility] in [place]. He is willing to see you in the clinic. His address is: [address] [place] [address]. [place] [address] Alternatively, if you get a hold of Dr. Shah on Tuesday, he may want to refer you to a neurologist that he prefers at [facility]. I did try and call him toncaryn but I was unable to reach him. Call the office first thing in the morning on Tuesday. Return to the emergency room for any pain, difficulty walking or any concerns or getting worse. Prescriptions: Tamsulosin HCl [Flomax 0.4 mg Cap.sr] 0.4 mg PO DAILY #14 cap.sr.24h Forms: Return to Work
[2019-02-24 21:38] VITALS: BP 134/80
== END 2019-02-24 21:51 | disposition home or self-care (01) ==
LOC: ER 14:22
DX: R33.9 Retention of urine, unspecified (principal); R10.9 Unspecified abdominal pain; E28.2 Polycystic ovarian syndrome; J45.909 Unspecified asthma, uncomplicated; Z88.0 Allergy status to penicillin; Z87.442 Personal history of urinary calculi
CPT/HCPCS: 36415; 51702; 80053; 81001; 84703; 85025; 87086; 99283

== ENCOUNTER 2019-04-02 18:30 | Emergency (ER) | payer OTHER, BC ==
[2019-04-02] MEDS ORDERED: HYDROCODONE/ACETAMINOPHEN 5-325 MG TABLET PO ONE (19:36)
--- NOTE | 2019-04-02 19:40 | ER Document Report ---
HPI - HPI Patient complains to provider of: Left foot and ankle pain Time Seen by Provider: 04/02/19 19:31 Onset: Just prior to arrival Onset/Duration: Sudden Quality of pain: Achy Pain Level: 4 Context: Patient was at work and accidentally stepped into a drain twisting her left ankle. Patient complains of left ankle and foot pain. Patient denies any other injury from the fall Associated Symptoms: Other - Left foot and ankle pain. denies: Nausea, Vomiting Exacerbated by: Standing, Movement, Walking Relieved by: Denies Similar symptoms previously: No Recently seen / treated by doctor: No - ROS ROS below otherwise negative: Yes Systems Reviewed and Negative: Yes All other systems reviewed and negative - GASTROINTESTINAL Gastrointestinal: DENIES: Nausea - REPRODUCTIVE Reproductive: DENIES: : - MUSCULOSKELETAL Musculoskeletal: REPORTS: Extremity pain - left ankle, Swelling - DERM Skin Color: Normal Skin Problems: None Past Medical History - General Information source: Patient - Social History Smoking Status: Never Smoker Frequency of alcohol use: None Drug Abuse: None Occupation: [employer] Lives with: Family Family History: Reviewed & Not Pertinent, Other - Kidney stones Patient has suicidal ideation: No Patient has homicidal ideation: No Pulmonary Medical History: Reports: Hx Asthma Renal/ Medical History: Denies: Hx Peritoneal Dialysis Psychiatric Medical History: Reports: Hx Anxiety Past Surgical History: Reports: Hx Gynecologic Surgery, Hx Orthopedic Surgery - achilles tendon - Immunizations Immunizations up to date: Yes Hx Diphtheria, Pertussis, Tetanus Vaccination: Yes Vertical Provider Document - CONSTITUTIONAL Agree With Documented VS: Yes Exam Limitations: No Limitations General Appearance: WD/WN - INFECTION CONTROL TRAVEL OUTSIDE OF THE [place] IN LAST 30 DAYS: No - HEENT HEENT: Atraumatic, Normocephalic - NECK Neck: Normal Inspection - RESPIRATORY Respiratory: No Respiratory Distress - CARDIOVASCULAR Pulses: Normal: Dorsalis pedis - MUSCULOSKELETAL/EXTREMETIES Musculoskeletal/Extremeties: MAEW, Tender - Left midfoot tenderness, left lateral ankle tenderness, 3+ edema to left foot, Edema. negative: Eccymosis - NEURO Level of Consciousness: Awake, Alert, Appropriate Motor/Sensory: No Motor Deficit - DERM Integumentary: Warm, Dry, No Rash Course - Diagnostic Test Radiology reviewed: Reports reviewed Procedures - Immobilization Left Ankle Pre-Proc Neuro Vasc Exam: Normal Immobilizer type: Ankle stirrup Performed by: PCT Post-Proc Neuro Vasc Exam: Normal Alignment checked and good: Yes Discharge - Discharge Clinical Impression: Left foot pain Left ankle sprain Qualifiers: Encounter type: initial encounter Involved ligament of ankle: unspecified ligament Qualified Code(s): S93.402A - Sprain of unspecified ligament of left ankle, initial encounter Condition: Stable Disposition: HOME, SELF-CARE Instructions: Ankle Stirrup Splint ([facility]), Use of Crutches ([facility]), Ice & Elevation ([facility]), Sprained Ankle ([facility]) Additional Instructions: Return immediately for any new or worsening symptoms Followup with your primary care provider, call tomorrow to make a followup appointment Follow-up with orthopedics for any persistent pain or problems Weightbearing as tolerated Prescriptions: Naproxen [Naprosyn 250 Nmg Tablet] 1 tab PO BID #14 tablet Forms: Return to Work Referrals: [facility] [Provider Group] - Follow up as needed
--- NOTE | 2019-04-02 20:00 | RADIOLOGY REPORT (SQ) ---
EXAM DESCRIPTION: ANKLE LEFT COMPLETE COMPLETED DATE/TIME: 04/02/2019 7:51 pm REASON FOR STUDY: fall, rolled ankle COMPARISON: None. NUMBER OF VIEWS: Three views. TECHNIQUE: AP, lateral, and oblique radiographic images acquired of the left ankle. LIMITATIONS: None. FINDINGS: MINERALIZATION: Normal. BONES: No acute fracture or dislocation. No worrisome bone lesions. JOINTS: No effusions. SOFT TISSUES: Generalized soft tissue swelling. OTHER: No other significant finding. IMPRESSION: Soft tissue swelling. No identified fracture. TECHNICAL DOCUMENTATION: JOB ID: [id number] [employer]- All Rights Reserved Reading location - IP/workstation name: [email or web address]
--- NOTE | 2019-04-02 20:01 | RADIOLOGY REPORT (SQ) ---
EXAM DESCRIPTION: FOOT LEFT COMPLETE COMPLETED DATE/TIME: 04/02/2019 7:51 pm REASON FOR STUDY: fall, rolled ankle COMPARISON: None. NUMBER OF VIEWS: Three views. TECHNIQUE: AP, lateral and oblique radiographic images acquired of the left foot. LIMITATIONS: None. FINDINGS: MINERALIZATION: Normal. BONES: No acute fracture or dislocation. No worrisome bone lesions. JOINTS: No effusions. SOFT TISSUES: Dorsal soft tissue swelling. OTHER: No other significant finding. IMPRESSION: Soft tissue swelling. No acute fracture. TECHNICAL DOCUMENTATION: JOB ID: [id number] [employer]- All Rights Reserved Reading location - IP/workstation name: [email or web address]
[2019-04-02] MEDS ORDERED: HYDROCODONE/ACETAMINOPHEN 5-325 MG (6 TAB/ER DISP) PO PRN (20:46)
[2019-04-02 21:01] VITALS: BP 117/85
== END 2019-04-02 21:05 | disposition home or self-care (01) ==
LOC: ER 18:30
DX: S93.402A Sprain of unspecified ligament of left ankle, initial encounter (principal); M79.672 Pain in left foot; X50.1XXA Overexertion from prolonged static or awkward postures, initial encounter; Y99.0 Civilian activity done for income or pay; J45.909 Unspecified asthma, uncomplicated
CPT/HCPCS: 99283; 73610; 73630; L4350

== ENCOUNTER 2019-04-20 15:53 | Emergency (ER) | payer OTHER, BC ==
[2019-04-20 18:56] VITALS: BP 112/60
== END 2019-04-20 18:50 | disposition left against medical advice (07) ==
LOC: ER 15:53
DX: Z53.21 Procedure and treatment not carried out due to patient leaving prior to being seen by health care provider (principal); R10.9 Unspecified abdominal pain

== ENCOUNTER 2019-04-26 19:25 | Emergency (ER) | payer BC, OTHER ==
[2019-04-26 20:13] LABS: ABSOLUTE LYMPHOCYTES (AUTO) 2.1 10^3/uL (0.5-4.7); ABSOLUTE MONOCYTES (AUTO) 0.3 10^3/uL (0.1-1.4); ABSOLUTE NEUT (AUTO) 5.4 10^3/uL (1.7-8.2); BASOPHILS % (AUTO) 0.3 % (0-2); EOSINOPHILS % (AUTO) 0.3 % (0-6); HEMATOCRIT 32.7 % (36.0-47.0); HEMOGLOBIN 10.9 g/dL (12.0-15.5); LYMPHOCYTES % (AUTO) 26.5 % (13-45); MEAN CORPUSCULAR HEMOGLOBIN 27.1 pg (27.0-33.4); MEAN CORPUSCULAR HGB CONC 33.3 g/dL (32.0-36.0); MEAN CORPUSCULAR VOLUME 81 fl (80-97); PLATELET COUNT 307 10^3/uL (150-450); RED BLOOD COUNT 4.02 10^6/uL (3.72-5.28); RED CELL DISTRIBUTION WIDTH 14.7 % (11.5-14.0); SEGMENTED NEUTROPHILS % (AUTO) 68.9 % (42-78); TOTAL CELLS COUNTED % (AUTO) 100 %; WHITE BLOOD COUNT 7.8 10^3/uL (4.0-10.5)
[2019-04-26 20:16] LABS: ALANINE AMINOTRANSFERASE 29 U/L (9-52); ALBUMIN 4.3 g/dL (3.5-5.0); ALKALINE PHOSPHATASE 69 U/L (38-126); ANION GAP 12 (5-19); ASPARTATE AMINO TRANSFERASE 28 U/L (14-36); BILIRUBIN,DIRECT 0.3 mg/dL (0.0-0.4); BILIRUBIN,TOTAL 0.4 mg/dL (0.2-1.3); BLOOD UREA NITROGEN 10 mg/dL (7-20); CALCIUM 10.1 mg/dL (8.4-10.2); CARBON DIOXIDE 20 mmol/L (22-30); CHLORIDE 107 mmol/L (98-107); CREATINE KINASE 58 U/L (30-135); GLUCOSE 114 mg/dL (75-110); POTASSIUM 3.7 mmol/L (3.6-5.0); TOTAL PROTEIN 6.8 g/dL (6.3-8.2)
[2019-04-26 20:21] LABS: INTERNATIONAL RATION (INR) 0.99; PROTHROMBIN TIME 13.1 SEC (11.4-15.4)
[2019-04-26 20:29] LABS: CREATINE KINASE MB < 0.22 ng/mL (<4.55); TROPONIN I < 0.012 ng/mL
[2019-04-26 21:49] LABS: APPEARANCE,URINE CLOUDY; BILIRUBIN,URINE NEGATIVE (NEGATIVE); COLOR,URINE AMBER; GLUCOSE, URINE NEGATIVE (NEGATIVE); KETONES,URINE TRACE mg/dL (NEGATIVE); LEUKOCYTE ESTERASE,URINE MODERATE (NEGATIVE); NITRITE,URINE NEGATIVE (NEGATIVE); PROTEIN,URINE 30 mg/dL (NEGATIVE); URINE SPECIFIC GRAVITY 1.021; UROBILINOGEN,URINE NEGATIVE mg/dL (<2.0)
[2019-04-26] MEDS ORDERED: IPRATROPIUM/ALBUTEROL 0.5-2.5 MG/3 ML AMPUL NEB ONE (22:08)
[2019-04-26] MEDS ORDERED: METHYLPREDNISOLONE INJ 125 MG/2 ML SDV IV ONE (22:09)
--- NOTE | 2019-04-26 22:32 | ER Document Report ---
ED General - General Chief Complaint: Anxiety Stated Complaint: DIFFICULTY BREATHING Time Seen by Provider: 04/26/19 21:47 Primary Care Provider: ARTEM MCMULLEN MD [Primary Care Provider] - Follow up as needed Mode of Arrival: Wheelchair Information source: Patient TRAVEL OUTSIDE OF THE [place] 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 The patient states she felt tingly was breathing fast when she was brought down to the emergency department. She denies any chest pain. She reports no measured fever. She denies any constipation, diarrhea, dysuria, skin rash. She does report some lower extremity edema but has had some recent weight gain, possibly related to recent steroids. Patient admits to feeling anxious earlier. - Related Data Allergies/Adverse Reactions: amoxicillin trihydrate [From Augmentin] Allergy (Verified 04/02/19 19:22) Potassium Clavulanate * [From Augmentin] Allergy (Verified 04/02/19 19:22) Past Medical History - General Information source: Patient - Social History Smoking Status: Former Smoker Frequency of alcohol use: None Drug Abuse: None Lives with: Family Family History: Reviewed & Not Pertinent, Other - Kidney stones Patient has suicidal ideation: No Patient has homicidal ideation: No - Past Medical History Cardiac Medical History: Denies: Hx Atrial Fibrillation, Hx Congestive Heart Failure, Hx Coronary Artery Disease, Hx DVT, Hx Heart Attack, Hx Hypercholesterolemia, Hx Hypertension, Hx Peripheral Vascular Disease, Hx Pulmonary Embolism, Hx Heart Murmur Pulmonary Medical History: Reports: Hx Asthma Renal/ Medical History: Denies: Hx Peritoneal Dialysis Psychiatric Medical History: Reports: Hx Anxiety Past Surgical History: Reports: Hx Gynecologic Surgery, Hx Orthopedic Surgery - achilles tendon - Immunizations Immunizations up to date: Yes Hx Diphtheria, Pertussis, Tetanus Vaccination: Yes Review of Systems - Review of Systems -: Yes All other systems reviewed and negative Physical Exam - Vital signs Vitals: Resp Pulse Ox 20 99 04/26/19 19:30 04/26/19 19:30 - Notes Notes: PHYSICAL EXAMINATION: GENERAL: Well-appearing, well-nourished and in no acute distress. HEAD: Atraumatic, normocephalic. EYES: Pupils equal round and reactive to light, extraocular movements intact, conjunctiva are normal. ENT: Nares patent with clear coryza, oropharynx clear without exudates. Moist mucous membranes. NECK: Normal range of motion, supple without lymphadenopathy. LUNGS: Breath sounds clear to auscultation bilaterally and equal. No rales or rhonchi. Scant anterior wheezes noted with somewhat tight cough. HEART: Regular rate and rhythm without murmurs ABDOMEN: Soft, nontender, nondistended abdomen. No guarding, no rebound. No masses appreciated. Obese Female : deferred Musculoskeletal: Normal range of motion, 1+ bilateral pretibial edema. No cyanosis. Negative Homans. No palpable cord. NEUROLOGICAL: Cranial nerves grossly intact. Normal speech, normal gait. Normal sensory, motor exams. Reports no paresthesias currently. PSYCH: Somewhat anxious. SKIN: Warm, Dry, normal turgor, no rashes or lesions noted. Course - Re-evaluation Re-evalutation: 04/26/19 22:32 Patient was given a DuoNeb treatment. 04/26/19 23:21 Repeat lung exam showed no significant wheezing. No obvious evidence for pneumonia or pulmonary embolus or congestive heart failure or acute AR or ischemia or electrolyte imbalance or significant anemia. No evidence of renal insufficiency. Urine culture is obtained, as the patient has a UTI. Patient had relief of anxiety and discomfort after Ativan and Toradol were given. O2 sats were 99 to 100% on room air. Patient requests prescription for Diflucan in the event of a yeast infection. 04/26/19 23:23 - Vital Signs Vital signs: Temp Pulse Resp BP Pulse Ox 98.5 F 15 126/81 H 99 04/26/19 22:00 04/26/19 22:00 04/26/19 22:00 04/26/19 22:00 - Laboratory Result Diagrams: 04/26/19 19:34 04/26/19 19:34 Laboratory results interpreted by me: 04/26/19 04/26/19 04/26/19 19:34 19:34 19:34 Hgb 10.9 L Hct 32.7 L RDW 14.7 H Carbon Dioxide 20 L Glucose 114 H NT-Pro-B Natriuret Pep 245 H Urine Protein Urine Ketones Ur Leukocyte Esterase Urine Ascorbic Acid 04/26/19 21:22 Hgb Hct RDW Carbon Dioxide Glucose NT-Pro-B Natriuret Pep Urine Protein 30 H Urine Ketones TRACE H Ur Leukocyte Esterase MODERATE H Urine Ascorbic Acid 40 H Discharge - Discharge Clinical Impression: Asthma with acute exacerbation in adult Qualifiers: Asthma severity: mild Asthma persistence: persistent Qualified Code(s): J45.31 - Mild persistent asthma with (acute) exacerbation Urinary tract infection Qualifiers: Urinary tract infection type: site unspecified Hematuria presence: without hematuria Qualified Code(s): N39.0 - Urinary tract infection, site not specified Condition: Stable Disposition: HOME, SELF-CARE Prescriptions: Cephalexin Monohydrate [Keflex 500 mg Capsule] 500 mg PO Q6H 8 Days capsule Fluconazole [Diflucan] 150 mg PO ONCE PRN #1 tablet PRN Reason: Prednisone [Deltasone 10 mg Tablet] 10 mg PO ASDIR PRN #21 tablet PRN Reason: Forms: Return to Work Referrals: ARTEM MCMULLEN MD [Primary Care Provider] - Follow up as needed
[2019-04-26] MEDS ORDERED: LORAZEPAM INJ 2 MG/1 ML VIAL IV ONE (22:43)
[2019-04-26] MEDS ORDERED: KETOROLAC TROMETHAMINE INJ/PF 30 MG/1 ML SDV IV ONE (22:43)
--- NOTE | 2019-04-26 23:08 | RADIOLOGY REPORT (SQ) ---
EXAM DESCRIPTION: XR CHEST 2 VIEWS COMPLETED DATE/TME: 04/26/2019 22:05 CLINICAL HISTORY: 23 years, Female, cough, chest pain COMPARISON: Prior study from 01/04/2019 NUMBER OF VIEWS: Two TECHNIQUE: Frontal and lateral radiographs of the chest were obtained. LIMITATIONS: None. FINDINGS: Cardiac and mediastinal contours are normal in appearance. Lungs are clear. No pleural effusion or pneumothorax. IMPRESSION: No acute disease. copyright 2010 [employer]- All Rights Reserved
[2019-04-27 00:16] VITALS: BP 110/69
--- NOTE | 2019-04-27 14:31 | EKG REPORT ---
SEVERITY:- BORDERLINE ECG - SINUS TACHYCARDIA PROBABLE LEFT ATRIAL ABNORMALITY INFERIOR Q WAVES, PROBABLY NORMAL VARIATION : Confirmed by: Asiya Centeno MD 27-Apr-2019 14:30:40
== END 2019-04-27 00:16 | disposition home or self-care (01) ==
LOC: ER 19:25
DX: J45.31 Mild persistent asthma with (acute) exacerbation (principal); N39.0 Urinary tract infection, site not specified; F41.9 Anxiety disorder, unspecified; R06.00 Dyspnea, unspecified; Z88.0 Allergy status to penicillin
CPT/HCPCS: 93005; 94640; 99284; 96374; 96375; 36415; 87086; 82553; 82550; 85025; 85610; 81025; 87088; 80053; 81001; 84484; 87186; 83880; 71046; 93010; J2930; J1885; J2060; J7620

== ENCOUNTER 2019-05-16 22:38 | Emergency (ER) | payer BC, OTHER ==
[2019-05-16] MEDS ORDERED: HYDROCODONE/ACETAMINOPHEN 5-325 MG TABLET PO ONE (23:18)
--- NOTE | 2019-05-16 23:21 | ER Document Report ---
ED Medical Screen (RME) - General Chief Complaint: Abdominal Pain Stated Complaint: ABDOMINAL PAIN Primary Care Provider: ARTEM MCMULLEN MD [Primary Care Provider] - Follow up as needed Notes: Patient is a 23 year old female who presents to emergency department with a chief complaint of right lower quadrant abdominal pain. Had her pain on and off for the past few weeks. She has history of ovarian cyst and renal stones in the past. Exam: Tender right lower quadrant. I have greeted and performed a rapid initial assessment of this patient. A comprehensive ED assessment and evaluation of the patient, analysis of test results and completion of medical decision making process will be conducted by an additional ED providers. TRAVEL OUTSIDE OF THE [place] IN LAST 30 DAYS: No - Related Data Allergies/Adverse Reactions: amoxicillin trihydrate [From Augmentin] Allergy (Verified 04/02/19 19:22) Potassium Clavulanate * [From Augmentin] Allergy (Verified 04/02/19 19:22) Past Medical History - Social History Family history: Reviewed & Not Pertinent - Past Medical History Cardiac Medical History: Denies: Hx Atrial Fibrillation, Hx Congestive Heart Failure, Hx Coronary Artery Disease, Hx DVT, Hx Heart Attack, Hx Hypercholesterolemia, Hx Hypertension, Hx Peripheral Vascular Disease, Hx Pulmonary Embolism, Hx Heart Murmur Pulmonary Medical History: Reports: Hx Asthma Renal/ Medical History: Denies: Hx Peritoneal Dialysis Psychiatric Medical History: Reports: Hx Anxiety Past Surgical History: Reports: Hx Gynecologic Surgery, Hx Orthopedic Surgery - achilles tendon - Immunizations Immunizations up to date: Yes Hx Diphtheria, Pertussis, Tetanus Vaccination: Yes Physical Exam - Vital signs Vitals: Temp Pulse Resp BP Pulse Ox 97.9 F 109 H 20 110/88 H 97 05/16/19 22:46 05/16/19 22:46 05/16/19 22:46 05/16/19 22:46 05/16/19 22:46 Course - Vital Signs Vital signs: Temp Pulse Resp BP Pulse Ox 97.9 F 109 H 20 110/88 H 97 05/16/19 22:46 05/16/19 22:46 05/16/19 22:46 05/16/19 22:46 05/16/19 22:46 Doctor's Discharge - Discharge Referrals: ARTEM MCMULLEN MD [Primary Care Provider] - Follow up as needed
[2019-05-16] MEDS ORDERED: NORMAL SALINE 1000 ML 1,000 ML IV ONE (23:22)
[2019-05-16] MEDS ORDERED: ONDANSETRON HCL INJ/PF 4 MG/2 ML SDV IV ONE (23:23)
[2019-05-17 00:42] LABS: ABSOLUTE EOSINOPHILS # (AUTO) 0.1 10^3/uL (0.0-0.6); ABSOLUTE MONOCYTES (AUTO) 0.3 10^3/uL (0.1-1.4); BASOPHILS % (AUTO) 0.2 % (0-2); EOSINOPHILS % (AUTO) 0.5 % (0-6); HEMOGLOBIN 10.8 g/dL (12.0-15.5); LYMPHOCYTES % (AUTO) 28.5 % (13-45); MEAN CORPUSCULAR HGB CONC 32.7 g/dL (32.0-36.0); MEAN CORPUSCULAR VOLUME 82 fl (80-97); MONOCYTES % (AUTO) 3.3 % (3-13); PLATELET COUNT 317 10^3/uL (150-450); RED BLOOD COUNT 4.01 10^6/uL (3.72-5.28); RED CELL DISTRIBUTION WIDTH 14.3 % (11.5-14.0); SEGMENTED NEUTROPHILS % (AUTO) 67.5 % (42-78); TOTAL CELLS COUNTED % (AUTO) 100 %; WHITE BLOOD COUNT 10.4 10^3/uL (4.0-10.5)
[2019-05-17 00:56] LABS: ALKALINE PHOSPHATASE 66 U/L (38-126); ANION GAP 9 (5-19); ASPARTATE AMINO TRANSFERASE 15 U/L (14-36); BILIRUBIN,DIRECT 0.3 mg/dL (0.0-0.4); BILIRUBIN,TOTAL 0.3 mg/dL (0.2-1.3); BLOOD UREA NITROGEN 13 mg/dL (7-20); CALCIUM 9.8 mg/dL (8.4-10.2); CARBON DIOXIDE 23 mmol/L (22-30); CHLORIDE 109 mmol/L (98-107); GLUCOSE 90 mg/dL (75-110); POTASSIUM 4.2 mmol/L (3.6-5.0); TOTAL PROTEIN 6.7 g/dL (6.3-8.2)
--- NOTE | 2019-05-17 00:57 | RADIOLOGY REPORT (SQ) ---
EXAM: US Pelvis Transvaginal CLINICAL DATA: 23-year-old female with right lower quadrant pain and history of ovarian cysts TECHNICAL DATA: Ultrasound imaging of the pelvis was performed endovaginally on 05/17/2019 at 12:07 AM. COMPARISONS: CT abdomen and pelvis performed on 07/08/2018 FINDINGS: The uterus is normal in size, shape and echogenicity and measures 6.6 x 4.0 x 2.7 cm. In intrauterine device is present within the endometrial canal and satisfactory position.. The right ovary is not well visualized due to adjacent overlying bowel gas. The left ovary measures 2.1 x 1.7 x 1.7 cm. The left ovary is normal in size, shape and echogenicity. Doppler imaging demonstrates flow within the left ovary. There is no free fluid in the pelvis. The cervix measures 2.7 cm in length. No adnexal mass lesions are identified. IMPRESSION: 1. Intrauterine device present in grossly satisfactory position. 2. Nonvisualization of the right ovary on this examination. 3. Grossly normal sonographic evaluation of the left ovary. 4. No adnexal mass lesions are identified.
--- NOTE | 2019-05-17 01:17 | RADIOLOGY REPORT (SQ) ---
CLINICAL HISTORY: abd pain; hx stones COMPARISON: None. TECHNIQUE: US RETROPERITONEUM LIMITED on 05/16/2019 11:19 PM CDT FINDINGS: Right kidney measures 10.5 cm and left kidney measures 10.6 cm. There is no hydronephrosis or nephrolithiasis. IMPRESSION: Unremarkable study.
[2019-05-17 02:03] LABS: APPEARANCE,URINE CLOUDY; BILIRUBIN,URINE NEGATIVE (NEGATIVE); CALCIUM OXALATE CRYSTALS,URINE MODERATE /HPF; GLUCOSE, URINE NEGATIVE (NEGATIVE); KETONES,URINE TRACE mg/dL (NEGATIVE); LEUKOCYTE ESTERASE,URINE LARGE (NEGATIVE); NITRITE,URINE NEGATIVE (NEGATIVE); PROTEIN,URINE 30 mg/dL (NEGATIVE); URINE SPECIFIC GRAVITY 1.028; UROBILINOGEN,URINE NEGATIVE mg/dL (<2.0)
[2019-05-17 02:04] LABS: COLOR,URINE YELLOW
--- NOTE | 2019-05-17 03:50 | ER Document Report ---
ED GI/ - General Chief Complaint: Abdominal Pain Stated Complaint: ABDOMINAL PAIN Time Seen by Provider: 05/16/19 23:21 Primary Care Provider: ARTEM MCMULLEN MD [Primary Care Provider] - Follow up as needed Notes: Patient is a 23-year-old female that comes emergency department for chief complaint of right-sided abdominal pain. She states she has had this for a few weeks, intermittently, over the past 3 days it has been much worse in last night she had difficulty sleeping from the pain. She denies vomiting but reports occasional vague nausea. She denies fever/chills. She reports minimal vaginal discharge, denies dysuria, denies flank pain, denies vaginal bleeding. She is sexually active. She reports regular bowel movements although she has been mostly having diarrhea recently. Past medical history includes PCOS, she has had pain from ovarian cysts in the past, she also has a history of kidney sto donna. TRAVEL OUTSIDE OF THE [place] IN LAST 30 DAYS: No - Related Data Allergies/Adverse Reactions: amoxicillin trihydrate [From Augmentin] Allergy (Verified 04/02/19 19:22) Potassium Clavulanate * [From Augmentin] Allergy (Verified 04/02/19 19:22) Past Medical History - General Information source: Patient - Social History Smoking Status: Never Smoker Chew tobacco use (# tins/day): No Drug Abuse: None Lives with: Family Family History: Reviewed & Not Pertinent, Other - Kidney stones Patient has suicidal ideation: No Patient has homicidal ideation: No - Past Medical History Cardiac Medical History: Denies: Hx Atrial Fibrillation, Hx Congestive Heart Failure, Hx Coronary Artery Disease, Hx DVT, Hx Heart Attack, Hx Hypercholesterolemia, Hx Hypertension, Hx Peripheral Vascular Disease, Hx Pulmonary Embolism, Hx Heart Murmur Pulmonary Medical History: Reports: Hx Asthma Renal/ Medical History: Denies: Hx Peritoneal Dialysis Psychiatric Medical History: Reports: Hx Anxiety Past Surgical History: Reports: Hx Gynecologic Surgery, Hx Orthopedic Surgery - achilles tendon - Immunizations Immunizations up to date: Yes Hx Diphtheria, Pertussis, Tetanus Vaccination: Yes Review of Systems - Review of Systems Constitutional: No symptoms reported EENT: No symptoms reported Cardiovascular: No symptoms reported Respiratory: No symptoms reported Gastrointestinal: See HPI Genitourinary: See HPI Female Genitourinary: See HPI Musculoskeletal: No symptoms reported Skin: No symptoms reported Hematologic/Lymphatic: No symptoms reported Neurological/Psychological: No symptoms reported Physical Exam - Vital signs Vitals: Temp Pulse Resp BP Pulse Ox 97.9 F 109 H 20 110/88 H 97 05/16/19 22:46 05/16/19 22:46 05/16/19 22:46 05/16/19 22:46 05/16/19 22:46 - Notes Notes: GENERAL: Alert, interacts well. No acute distress. HEAD: Normocephalic, atraumatic. EYES: Pupils equal, round, and reactive to light. Extraocular movements intact. ENT: Oral mucosa moist, tongue midline. Oropharynx unremarkable. Airway patent. LUNGS: Clear to auscultation bilaterally, no wheezes, rales, or rhonchi. No respiratory distress. HEART: Regular rate and rhythm. No murmur ABDOMEN: Mild diffuse abdominal tenderness in all quadrants, no guarding or rigidity, bowel sounds present throughout GENITOURINARY: External exam without concerning finding, speculum exam showing no discharge, no concerning lesions or tenderness, no bleeding. Exam performed with Ericka MURPHY at bedside. EXTREMITIES: Moves all 4 extremities spontaneously. No edema, normal radial and dorsalis pedis pulses bilaterally. No cyanosis. BACK: no cervical, thoracic, lumbar midline tenderness. No saddle anesthesia, normal distal neurovascular exam. NEUROLOGICAL: Alert and oriented x3. Normal speech. Cranial nerves II through XII grossly intact. PSYCH: Normal affect, normal mood. SKIN: Warm, dry, normal turgor. No rashes or lesions noted. Course - Re-evaluation Re-evalutation: Patient has some mild generalized tenderness of the abdomen which does not appear to be only in the lower abdomen. CBC shows some anemia, no leukocytosis, chemistry nonspecific, urinalysis suggesting infection but does have some contamination. test is negative. I discussed with patient, decision was made to proceed with pelvic exam but this was completely unremarkable without signs of pelvic infection. I did review ultrasound from triage including renal and pelvic, these do not show any concerning findings or cause of the pain. Based on patient's description I actually suspect she has some component of constipation (after re-discussion) and she will also be treated for UTI. Very low suspicion of acute abdomen. I discussed work-up, treatment, plan with patient in detail. Discussed follow- up and return precautions. Patient states understanding and agreement. Stable at time of discharge. - Vital Signs Vital signs: Temp Pulse Resp BP Pulse Ox 97.8 F 82 16 116/60 100 05/17/19 04:46 05/17/19 04:46 05/17/19 04:46 05/17/19 04:46 05/17/19 04:46 - Laboratory Result Diagrams: 05/16/19 00:15 05/16/19 00:15 Laboratory results interpreted by me: 05/16/19 05/16/19 05/17/19 00:15 00:15 01:43 Hgb 10.8 L Hct 33.0 L RDW 14.3 H Chloride 109 H Urine Protein 30 H Urine Ketones TRACE H Ur Leukocyte Esterase LARGE H Urine Ascorbic Acid 40 H Discharge - Discharge Clinical Impression: Abdominal pain Qualifiers: Abdominal location: generalized Qualified Code(s): R10.84 - Generalized abdominal pain Condition: Stable Disposition: HOME, SELF-CARE Additional Instructions: Your laboratory work-up shows some anemia but otherwise does not show concerning findings except for the urinary tract infection as we discussed. I recommend you take the Keflex antibiotic as prescribed, I recommend that you take the Colace stool softener for the next several days, I also recommend that you take the Phenergan if needed for nausea. Take Bentyl as needed for cramping. Symptoms should resolve with time. Follow-up with primary care. Return if you worsen including vomiting, fever, severe worsening pain, or any other concerning symptoms. Prescriptions: Dicyclomine HCl [Bentyl 20 mg Tablet] 20 mg PO QID PRN #20 tablet PRN Reason: Docusate Sodium [Colace 100 mg Capsule] 100 mg PO ASDIR PRN #30 capsule PRN Reason: Cephalexin Monohydrate [Keflex 500 mg Capsule] 500 mg PO BID 7 Days #14 capsule Promethazine HCl [Phenergan 25 mg Tablet] 25 mg PO Q6H PRN #15 tablet PRN Reason: Forms: Return to Work Referrals: ARTEM MCMULLEN MD [Primary Care Provider] - Follow up as needed
[2019-05-17 04:09] LABS: RBCS (WET MOUNT) NO RBCS SEEN; T.VAGINALIS (WET MOUNT) NO TRICHOMONAS SEEN; WBCS (WET MOUNT) 1+ WBCS SEEN; YEAST (WET MOUNT) NO YEAST SEEN
[2019-05-17] MEDS ORDERED: CEPHALEXIN 500 MG CAPSULE PO ONE (04:23)
[2019-05-17 04:54] VITALS: BP 116/60
[2019-05-17 05:40] LABS: CHLAM PCR NOT DETECTED (NOT DETECT)
== END 2019-05-17 04:46 | disposition home or self-care (01) ==
LOC: ER 22:38
DX: R10.84 Generalized abdominal pain (principal); R11.0 Nausea; Z88.0 Allergy status to penicillin
CPT/HCPCS: 36415; 76775; 76830; 80053; 81001; 81025; 85025; 87210; 87491; 87591; 93976; J2405; J7030

== ENCOUNTER 2019-08-25 14:27 | Emergency (ER) | payer BC ==
[2019-08-25] MEDS ORDERED: LIDOCAINE 5% (700 MG) TRANSDERMAL ADH..PATCH TP ONE (14:45)
[2019-08-25] MEDS ORDERED: IBUPROFEN 800 MG TABLET PO ONE (14:45)
--- NOTE | 2019-08-25 14:46 | ER Document Report ---
HPI - HPI Time Seen by Provider: 08/25/19 14:42 Pain Level: 4 Notes: Patient is an otherwise healthy 23-year-old female presenting to the emergency department chief complaint of right shoulder pain. Patient reports that she always have some pain in both shoulders however yesterday she was closing her automatic minivan door and the door hit her in the right shoulder. She reports pain since that time. She has not taken any medications for her pain. - REPRODUCTIVE LMP: IUD- 3 years Reproductive: DENIES: : Past Medical History - General Information source: Patient - Social History Smoking Status: Never Smoker Chew tobacco use (# tins/day): No Frequency of alcohol use: None Drug Abuse: None Family History: Reviewed & Not Pertinent, Other - Kidney stones Patient has suicidal ideation: No Patient has homicidal ideation: No - Past Medical History Cardiac Medical History: Denies: Hx Atrial Fibrillation, Hx Congestive Heart Failure, Hx Coronary Artery Disease, Hx DVT, Hx Heart Attack, Hx Hypercholesterolemia, Hx Hypertension, Hx Peripheral Vascular Disease, Hx Pulmonary Embolism, Hx Heart M urmur Pulmonary Medical History: Reports: Hx Asthma Renal/ Medical History: Denies: Hx Peritoneal Dialysis Psychiatric Medical History: Reports: Hx Anxiety Past Surgical History: Reports: Hx Gynecologic Surgery, Hx Orthopedic Surgery - achilles tendon - Immunizations Immunizations up to date: Yes Hx Diphtheria, Pertussis, Tetanus Vaccination: Yes Vertical Provider Document - CONSTITUTIONAL Notes: PHYSICAL EXAMINATION: GENERAL: Well-appearing, well-nourished and in no acute distress. HEAD: Atraumatic, normocephalic. EYES: Pupils equal round extraocular movements intact, conjunctiva are normal. ENT: Nares patent NECK: Normal range of motion LUNGS: No respiratory distress Musculoskeletal: Normal range of motion to bilateral shoulders, no obvious traum a, erythema, ecchymosis or edema noted to shoulder. Tenderness upon palpation of the anterior right shoulder. Strong rouge sifter and miller strengths equally and distally, strong radial pulse. NEUROLOGICAL: Normal speech, normal gait. PSYCH: Normal mood, normal affect. SKIN: Warm, Dry, normal turgor, no rashes or lesions noted. - INFECTION CONTROL TRAVEL OUTSIDE OF THE [place] IN LAST 30 DAYS: No Course - Re-evaluation Re-evalutation: X-ray negative for any acute findings. Patient will be discharged home at this time. Patient is in agreements with treatment plan and all test results discussed. - Vital Signs Vital signs: Temp Pulse Resp BP Pulse Ox 98.2 F 101 H 18 136/69 H 98 08/25/19 14:30 08/25/19 14:30 08/25/19 14:30 08/25/19 14:30 08/25/19 14:30 Discharge - Discharge Clinical Impression: Contusion of left scapula Qualifiers: Encounter type: initial encounter Qualified Code(s): S40.012A - Contusion of left shoulder, initial encounter Condition: Stable Disposition: HOME, SELF-CARE Additional Instructions: Shoulder Injury You have injured your shoulder. This usually results from stretching or tearing of the tendons during trauma. Time and protection are required in order to heal properly. Many injuries are quite disabling, and should be taken seriously. Initial treatment includes cold packs and a sling to rest the shoulder. The physician has assessed the seriousness of your injury, and has outlined a treatment plan. Understand that this treatment may change, depending on how you progress. If a re-examination was recommended, it is important that you follow up as instructed. Some shoulder injuries (such as partial tear of the rotator cuff) are only suspected after you've failed to improve. Call us if there's severe pain, numbness, or loss of function. The x-ray of the shoulder was unremarkable. There is no fracture dislocation of the bones. This does not necessarily rule out an internal shoulder injury such as a rotator cuff tear. Please take ibuprofen 600 mg every 6 hours. Alternate heat and ice. If your pain continues please follow-up with orthopedics, their phone number is below. Referrals: MÓNICA LEIVA JR, DO [ACTIVE PROVISIONAL STAFF] - Follow up as needed
--- NOTE | 2019-08-25 15:22 | RADIOLOGY REPORT (SQ) ---
EXAM DESCRIPTION: SHOULDER RIGHT 2 OR MORE VIEWS COMPLETED DATE/TIME: 08/25/2019 3:03 pm REASON FOR STUDY: shoulder pain s/p injury COMPARISON: None. NUMBER OF VIEWS: Three views. TECHNIQUE: Internal rotation, external rotation, and Y view images acquired of the right shoulder. LIMITATIONS: None. FINDINGS: MINERALIZATION: Normal. BONES: No acute fracture. No worrisome bone lesions. JOINTS: No glenohumeral dislocation. No widening at the acromioclavicular joint VISUALIZED LUNGS AND RIBS: No pneumothorax. No rib fracture. SOFT TISSUES: No radiopaque foreign body. OTHER: No other significant finding. IMPRESSION: NEGATIVE STUDY OF THE RIGHT SHOULDER. NO RADIOGRAPHIC EVIDENCE OF ACUTE INJURY. TECHNICAL DOCUMENTATION: JOB ID: [id number] [employer]- All Rights Reserved Reading location - IP/workstation name: [id number]
[2019-08-25 16:48] VITALS: BP 132/74
== END 2019-08-25 16:51 | disposition home or self-care (01) ==
LOC: ER 14:27
DX: S40.012A Contusion of left shoulder, initial encounter (principal); M25.511 Pain in right shoulder; W20.8XXA Other cause of strike by thrown, projected or falling object, initial encounter
CPT/HCPCS: 99283

== ENCOUNTER 2019-10-25 13:29 | Emergency (ER) | payer BC ==
--- NOTE | 2019-10-25 14:42 | ER Document Report ---
ED Medical Screen (RME) - General Chief Complaint: Headache Stated Complaint: HEADACHE Time Seen by Provider: 10/25/19 14:40 Primary Care Provider: ARTEM MCMULLEN MD [Primary Care Provider] - Follow up as needed Mode of Arrival: Wheelchair Information source: Patient Notes: 23-year-old female presented to ED for headache. She states she has had a headache since Tuesday. She does not have a history of frequent migraines but she has this headache that has not gone away since Tuesday. Today she had blurred vision and could not focus on what she was doing her knee started to buckle and she felt like she was going to pass out so she came to the emergency room. She is working in foods services in the hospital. She states she does have tingling all over. She states she does have a history of asthma kidney stones and ovarian cyst and depression. She does not smoke drink or use any drugs. I have greeted and performed a rapid initial assessment of this patient. A comprehensive ED assessment and evaluation of the patient, analysis of test results and completion of medical decision making process will be conducted by an additional ED providers. TRAVEL OUTSIDE OF THE [place] IN LAST 30 DAYS: No - Related Data Allergies/Adverse Reactions: amoxicillin trihydrate [From Augmentin] Allergy (Verified 10/25/19 14:25) Potassium Clavulanate * [From Augmentin] Allergy (Verified 10/25/19 14:25) Past Medical History - Social History Family history: Reviewed & Not Pertinent - Past Medical History Cardiac Medical History: Denies: Hx Atrial Fibrillation, Hx Congestive Heart Failure, Hx Coronary Artery Disease, Hx DVT, Hx Heart Attack, Hx Hypercholesterolemia, Hx Hypertension, Hx Peripheral Vascular Disease, Hx Pulmonary Embolism, Hx Heart Murmur Pulmonary Medical History: Reports: Hx Asthma Renal/ Medical History: Denies: Hx Peritoneal Dialysis Psychiatric Medical History: Reports: Hx Anxiety Past Surgical History: Reports: Hx Gynecologic Surgery, Hx Orthopedic Surgery - achilles tendon - Immunizations Immunizations up to date: Yes Hx Diphtheria, Pertussis, Tetanus Vaccination: Yes Physical Exam - Vital signs Vitals: Temp Pulse Resp BP Pulse Ox 98.3 F 86 16 125/68 99 10/25/19 13:42 10/25/19 13:42 10/25/19 13:42 10/25/19 13:42 10/25/19 13:42 Course - Vital Signs Vital signs: Temp Pulse Resp BP Pulse Ox 98.3 F 86 16 125/68 99 10/25/19 13:42 10/25/19 13:42 10/25/19 13:42 10/25/19 13:42 10/25/19 13:42 Doctor's Discharge - Discharge Referrals: ARTEM MCMULLEN MD [Primary Care Provider] - Follow up as needed
[2019-10-25 15:29] LABS: ABSOLUTE LYMPHOCYTES (AUTO) 2.7 10^3/uL (0.5-4.7); ABSOLUTE MONOCYTES (AUTO) 0.4 10^3/uL (0.1-1.4); ABSOLUTE NEUT (AUTO) 8.9 10^3/uL (1.7-8.2); BASOPHILS % (AUTO) 0.2 % (0-2); EOSINOPHILS % (AUTO) 0.4 % (0-6); HEMATOCRIT 35.5 % (36.0-47.0); HEMOGLOBIN 11.7 g/dL (12.0-15.5); LYMPHOCYTES % (AUTO) 22.6 % (13-45); MEAN CORPUSCULAR HEMOGLOBIN 25.9 pg (27.0-33.4); MEAN CORPUSCULAR VOLUME 79 fl (80-97); MONOCYTES % (AUTO) 3.2 % (3-13); PLATELET COUNT 344 10^3/uL (150-450); RED BLOOD COUNT 4.52 10^6/uL (3.72-5.28); RED CELL DISTRIBUTION WIDTH 15.1 % (11.5-14.0); SEGMENTED NEUTROPHILS % (AUTO) 73.6 % (42-78); TOTAL CELLS COUNTED % (AUTO) 100 %; WHITE BLOOD COUNT 12.1 10^3/uL (4.0-10.5)
[2019-10-25 15:43] LABS: APPEARANCE,URINE SLIGHTLY-CLOUDY; BILIRUBIN,URINE NEGATIVE (NEGATIVE); COLOR,URINE YELLOW; GLUCOSE, URINE NEGATIVE (NEGATIVE); KETONES,URINE NEGATIVE (NEGATIVE); PROTEIN,URINE NEGATIVE (NEGATIVE); URINE SPECIFIC GRAVITY 1.018; UROBILINOGEN,URINE NEGATIVE mg/dL (<2.0)
[2019-10-25 15:51] LABS: ALBUMIN 4.2 g/dL (3.5-5.0); ALKALINE PHOSPHATASE 81 U/L (38-126); ANION GAP 11 (5-19); ASPARTATE AMINO TRANSFERASE 16 U/L (14-36); BILIRUBIN,TOTAL 0.3 mg/dL (0.2-1.3); BLOOD UREA NITROGEN 15 mg/dL (7-20); CALCIUM 9.5 mg/dL (8.4-10.2); CARBON DIOXIDE 26 mmol/L (22-30); CHLORIDE 101 mmol/L (98-107); GLUCOSE 83 mg/dL (75-110); POTASSIUM 4.8 mmol/L (3.6-5.0); TOTAL PROTEIN 7.1 g/dL (6.3-8.2)
[2019-10-25] MEDS ORDERED: DIPHENHYDRAMINE HCL 50 MG/ML VIAL IV ONE (18:17)
[2019-10-25] MEDS ORDERED: KETOROLAC TROMETHAMINE INJ/PF 30 MG/1 ML SDV IV ONE (18:17)
[2019-10-25] MEDS ORDERED: METOCLOPRAMIDE HCL INJ/PF 10 MG/2 ML SDV IV ONE (18:17)
--- NOTE | 2019-10-25 18:24 | ER Document Report ---
ED Headache - General Chief Complaint: Headache Stated Complaint: HEADACHE Time Seen by Provider: 10/25/19 14:40 Primary Care Provider: ARTEM MCMULLEN MD [Primary Care Provider] - Follow up as needed Mode of Arrival: Wheelchair Notes: Patient is a 23-year-old female with a history of asthma, kidney stones, ovarian cyst and depression who presents the emergency department with a chief complaint of headache. Patient reports that over the past few months that she has been getting headaches daily. She reports she did follow-up with her primary care physician and does have a neurology appointment in November. Patient reports she just been taking Tylenol at home for her headaches. Patient reports on Tuesday developing a headache and bilateral temples. Patient reports this is sharp in n ature. Patient reports today not feeling herself. She reports at one point she felt like she was going to pass out while at work. Patient reports she is also having nasal congestion, runny nose, nonproductive cough. Patient reports these symptoms started on Tuesday. Patient denies nausea, vomiting or diarrhea. Patient denies neck pain. Patient denies fever. TRAVEL OUTSIDE OF THE [place] IN LAST 30 DAYS: No - Related Data Allergies/Adverse Reactions: amoxicillin trihydrate [From Augmentin] Allergy (Verified 10/25/19 14:25) Potassium Clavulanate * [From Augmentin] Allergy (Verified 10/25/19 14:25) Past Medical History - General Information source: Patient - Social History Smoking Status: Never Smoker Chew tobacco use (# tins/day): No Frequency of alcohol use: None Drug Abuse: None Lives with: Family Family History: Reviewed & Not Pertinent, Other - Kidney stones Patient has suicidal ideation: No Patient has homicidal ideation: No - Past Medical History Cardiac Medical History: Reports: None Denies: Hx Atrial Fibrillation, Hx Congestive Heart Failure, Hx Coronary Artery Disease, Hx DVT, Hx Heart Attack, Hx Hypercholesterolemia, Hx Hypertension, Hx Peripheral Vascular Disease, Hx Pulmonary Embolism, Hx Heart Murmur Pulmonary Medical History: Reports: Hx Asthma EENT Medical History: Reports: None Neurological Medical History: Reports: None Endocrine Medical History: Reports: None Renal/ Medical History: Reports: None. Denies: Hx Peritoneal Dialysis Malignancy Medical History: Reports: None GI Medical History: Reports: None Musculoskeletal Medical History: Reports None Skin Medical History: Reports None Psychiatric Medical History: Reports: Hx Anxiety Traumatic Medical History: Reports: None Infectious Medical History: Reports: None Past Surgical History: Reports: Hx Gynecologic Surgery, Hx Orthopedic Surgery - achilles tendon - Immunizations Immunizations up to date: Yes Hx Diphtheria, Pertussis, Tetanus Vaccination: Yes Review of Systems - Review of Systems Constitutional: No symptoms reported EENT: See HPI Cardiovascular: No symptoms reported Respiratory: See HPI Gastrointestinal: No symptoms reported Genitourinary: No symptoms reported Female Genitourinary: No symptoms reported Musculoskeletal: No symptoms reported Skin: No symptoms reported Hematologic/Lymphatic: No symptoms reported Neurological/Psychological: See HPI Physical Exam - Vital signs Vitals: Temp Pulse Resp BP Pulse Ox 98.3 F 86 16 125/68 99 10/25/19 13:42 10/25/19 13:42 10/25/19 13:42 10/25/19 13:42 10/25/19 13:42 Interpretation: Normal - Notes Notes: GENERAL: Well-appearing, well-nourished and in no acute distress. HEAD: Atraumatic, normocephalic. EYES: Pupils equal round and reactive to light, extraocular movements intact, sclera anicteric, conjunctiva are normal. ENT: TMs normal, nares patent, bilateral erythematous turbinates, no rhinorrhea, oropharynx clear without exudates. Moist mucous membranes. NECK: Normal range of motion, supple without lymphadenopathy or JVD. No nuchal rigidity. LUNGS: Breath sounds clear to auscultation bilaterally and equal. No wheezes rales or rhonchi. HEART: Regular rate and rhythm without murmurs, rubs or gallops. ABDOMEN: Soft, nontender, normoactive bowel sounds. No guarding, no rebound. No masses appreciated. BACK: No cervical, thoracic, lumbar midline tenderness. No saddle anesthesia, normal distal neurovascular exam. GENITOURINARY: Deferred. EXTREMITIES: Normal range of motion, no pitting or edema. No clubbing or cyanosis. NEUROLOGICAL: Cranial nerves II through XII grossly intact. Normal speech, normal gait. PSYCH: Normal mood, normal affect. SKIN: Warm, Dry, normal turgor, no rashes or lesions noted. Course - Re-evaluation Re-evalutation: 10/25/19 18:24 We will give the patient a migraine cocktail to include Toradol, Benadryl and Reglan. Patient's neurological examination was unremarkable. Patient is able to sit upright on stretcher in no acute distress. Patient nontoxic-appearing. Patient is even febrile, not tachycardic or hypotensive/hypertensive. Plan is to discharge after receiving the migraine cocktail and reevaluation. 10/25/19 19:13 Patient reports feeling much better after receiving the migraine cocktail. Mother is at the bedside. Patient no acute distress. Patient stable for discharge. - Vital Signs Vital signs: Temp Pulse Resp BP Pulse Ox 98.3 F 86 16 125/68 99 10/25/19 13:42 10/25/19 13:42 10/25/19 13:42 10/25/19 13:42 10/25/19 13:42 - Laboratory Result Diagrams: 10/25/19 14:50 10/25/19 14:50 Laboratory results interpreted by me: 10/25/19 10/25/19 14:50 14:50 WBC 12.1 H Hgb 11.7 L Hct 35.5 L MCV 79 L MCH 25.9 L RDW 15.1 H Absolute Neuts (auto) 8.9 H Urine Ascorbic Acid 40 H 10/25/19 18:24 Patient has a very a slight leukocytosis of 12.1. Patient's electrolytes unr emarkable. Patient has negative urine hCG. Laboratory 10/25/19 10/25/19 10/25/19 14:50 14:50 14:50 WBC 12.1 H RBC 4.52 Hgb 11.7 L Hct 35.5 L MCV 79 L MCH 25.9 L MCHC 33.0 RDW 15.1 H Plt Count 344 Lymph % (Auto) 22.6 Nolan % (Auto) 3.2 Eos % (Auto) 0.4 Baso % (Auto) 0.2 Absolute Neuts (auto) 8.9 H Absolute Lymphs (auto) 2.7 Absolute Monos (auto) 0.4 Absolute Eos (auto) 0.0 Absolute Basos (auto) 0.0 Seg Neutrophils % 73.6 Sodium 137.7 Potassium 4.8 Chloride 101 Carbon Dioxide 26 Anion Gap 11 BUN 15 Creatinine 0.83 Est GFR ( Amer) > 60 Est GFR (MDRD) Non-Af > 60 Glucose 83 Calcium 9.5 Total Bilirubin 0.3 Direct Bilirubin 0.0 Neonat Total Bilirubin Not Reportable Neonat Direct Bilirubin Not Reportable Neonat Indirect Bili Not Reportable AST 16 ALT 12 Alkaline Phosphatase 81 Total Protein 7.1 Albumin 4.2 Serum HCG, Qual NEGATIVE Urine Color Urine Appearance Urine pH Ur Specific Lovell Urine Protein Urine Glucose (UA) Urine Ketones Urine Blood Urine Nitrite (Reflex) Urine Bilirubin Urine Urobilinogen Leukocyte Esterase Rfl Urine RBC (Auto) Urine Bacteria (Auto) Urine WBC (Reflex) Squamous Epi Cells Auto Urine Mucus (Auto) Urine Ascorbic Acid 10/25/19 14:50 WBC RBC Hgb Hct MCV MCH MCHC RDW Plt Count Lymph % (Auto) Nolan % (Auto) Eos % (Auto) Baso % (Auto) Absolute Neuts (auto) Absolute Lymphs (auto) Absolute Monos (auto) Absolute Eos (auto) Absolute Basos (auto) Seg Neutrophils % Sodium Potassium Chloride Carbon Dioxide Anion Gap BUN Creatinine Est GFR ( Amer) Est GFR (MDRD) Non-Af Glucose Calcium Total Bilirubin Direct Bilirubin Neonat Total Bilirubin Neonat Direct Bilirubin Neonat Indirect Bili AST ALT Alkaline Phosphatase Total Protein Albumin Serum HCG, Qual Urine Color YELLOW Urine Appearance SLIGHTLY-CLOUDY Urine pH 6.0 Ur Specific Lovell 1.018 Urine Protein NEGATIVE Urine Glucose (UA) NEGATIVE Urine Ketones NEGATIVE Urine Blood NEGATIVE Urine Nitrite (Reflex) NEGATIVE Urine Bilirubin NEGATIVE Urine Urobilinogen NEGATIVE Leukocyte Esterase Rfl NEGATIVE Urine RBC (Auto) 1 Urine Bacteria (Auto) TRACE Urine WBC (Reflex) 1 Squamous Epi Cells Auto 6 Urine Mucus (Auto) OCC Urine Ascorbic Acid 40 H Discharge - Discharge Clinical Impression: Rhinorrhea Headache Qualifiers: Headache type: unspecified Headache chronicity pattern: acute headache Intractability: not intractable Qualified Code(s): R51 - Headache URI (upper respiratory infection) Qualifiers: URI type: unspecified viral URI Qualified Code(s): J06.9 - Acute upper respiratory infection, unspecified Condition: Stable Disposition: HOME, SELF-CARE Additional Instructions: *Today was in the emergency department for headache. We did obtain basic lab work as well as a urinalysis which was unremarkable. You do have a follow-up appointment with a neurologist in November for your frequent headaches. After receiving our migraine cocktail which included Reglan, Benadryl and Toradol you have reported feeling much better. Please make sure that you are staying adequately hydrating and resting. We will give you a work note for the next few days. Take Tylenol and ibuprofen as needed for pain or fever. Also looks like you are developing an upper respiratory infection. At this time you not require oral antibiotics. Continue your asthma medication regimen as prescribed by your primary care physician. HEADACHE: The physician does not feel that the headache you are experiencing has a serious underlying cause. Most headaches are due to emotional stress, with resultant muscle tension (tension headache). Occasionally, headaches are secondary to changes in the blood vessels of the scalp (vascular headache and mi graine headache). Sometimes, a headache is the first symptom of another developing illness, such as a viral infection. You have no evidence of stroke, bleeding, meningitis, or other serious cause of your headache. The treatment of headaches varies with the severity and cause of the pain. Not all headaches need pain shots. In fact, there is evidence that using narcotics for headaches may make them worse in the long run. The physician will determine the therapy that's in your best interest. If you develop a fever, if the headache is different from any you've previously experienced, or if the headache progressively worsens, then call your physician at once or go to the emergency room. REGLAN (METOCLOPRAMIDE): Reglan has been prescribed. This medicine affects the stomach and intestines. It can be used to treat nausea and vomiting, to prevent reflux of stomach acid up into the esophagus, or to increase the contractions of the stomach and intestines. It is often prescribed for esophagitis, and for paralysis of the stomach in diabetics. Reglan can cause either mild restlessness or drowsiness. You should contact the doctor at once if you become extremely restless, anxious, or cannot sleep, or if you develop uncontrollable motions of the lips, tongue, or jaw. Do not take alcohol with this medicine. Do not drive or operate machinery until you have been taking this medicine long enough to know how it affects you. Call the doctor if you develop abdominal pains, lightheadedness, black stool, or blood in the stool or vomitus. USE OF DIPHENHYDRAMINE: Diphenhydramine (Benadryl) is an antihistamine and has been recommended to help treat your headache and to prevent side effects of other medications used to treat headaches. The medication can be repeated four times daily. Age Elixir (12.5 mg/tsp) 25 mg pill adult 1-2 tabs Antihistamines may cause drowsiness, especially with the first dose. Do not operate machinery or drive while under the effects of the medication. Do not combine the medication with alcohol, or with any other medication without talking to your doctor. ANTINAUSEA MEDICATION: You have been given a medication to suppress nausea and vomiting. This type of medication can be given as a shot, pill, or suppository. It will usually last for many hours. Pills and shots usually last six to eight hours, suppositories last about 12 hours. For the typical illness, only one or two doses of the medication may be necessary. Mild lightheadedness may occur. This type of medicine can cause drowsiness. Do not drive or operate dangerous machinery while under its influence. Do not mix with alcohol. See your doctor at once if you have muscle spasms or tightness, or uncontrollable motions (particularly of the neck, mouth, or jaw). Persistent vomiting or severe lightheadedness should also be evaluated by the physician. TORADOL INJECTION: You have been given an injection of ketorolac tromethamine (Toradol). This is an excellent, safe drug for pain control. It also has potent antiinflammatory action. You should have significant pain relief within about one hour. Toradol is not addicting and is non-sedating. It does not interfere with driving or work. Call or return if you develop itching, hives, shortness of breath, or rash. FOLLOW-UP CARE: If you have been referred to a physician for follow-up care, call the physicians office for an appointment as you were instructed or within the next two days. If you experience worsening or a significant change in your symptoms, notify the physician immediately or return to the Emergency Department at any time for re-evaluation. UPPER RESPIRATORY ILLNESS: You have a viral infection of the respiratory passages -- a "cold." This common infection causes nasal congestion, drainage, and often sore throat and cough. It is highly contagious. The disease usually lasts about 10 to 14 days. There is no "cure" for the viral infection -- it must run its course. If there is a complication, such as bacterial infection in the nose, sinuses, middle ear, or bronchial tubes, antibiotics may be required. The antibiotics won't affect the virus. Drink plenty of fluids. A humidifier may help. An expectorant medication or decongestant may make you more comfortable. Use acetaminophen or ibuprofen for fever or aches. See the doctor if fever persists over two days, if there is any significant worsening of your symptoms, or if you simply fail to improve as expected. USE OF ACETAMINOPHEN (Tylenol): Acetaminophen may be taken for pain relief or fever control. It's much safer than aspirin, offering a wider range of "safe" dosages. It is safe during . Some brand names are Tylenol, Panadol, Datril, Anacin 3, Tempra, and Liquiprin. Acetaminophen can be repeated every four hours. The following are maximum recommended dosages: >89 pounds or adults 650 mg to 900 mg Acetaminophen can be repeated every four hours. Maximum dose not to exceed 4000 mg a day. SMOKING: If you smoke, you should stop smoking. The tar and chemicals in cigarette smoke are harmful. Smoking has been shown to cause: emphysema chronic bronchitis lung cancer mouth and throat cancer stomach and pancreas cancer premature aging defects In addition, smoking increases ear and lung infections in children of smokers. FOLLOW-UP CARE: If you have been referred to a physician for follow-up care, call the physicians office for an appointment as you were instructed or within the next two days. If you experience worsening or a significant change in your symptoms, notify the physician immediately or return to the Emergency Department at any time for re-evaluation. Forms: Return to Work Referrals: ARTEM MCMULLEN MD [Primary Care Provider] - Follow up as needed
[2019-10-25 19:25] VITALS: BP 114/51
== END 2019-10-25 19:41 | disposition home or self-care (01) ==
LOC: ER 13:29
DX: J06.9 Acute upper respiratory infection, unspecified (principal); R51 Headache; J34.89 Other specified disorders of nose and nasal sinuses; Z87.442 Personal history of urinary calculi
CPT/HCPCS: 99284; 96374; 96375; 36415; 84703; 85025; 80053; 81001; J1200; J1885; J2765